=== PATIENT | female | born 1960 | race Caucasian/White ===

== ENCOUNTER 2019-04-16 08:46 | Observation (INO) ==
[2019-04-16 08:56] VITALS: BMI 28.5
--- NOTE | 2019-04-16 09:13 | DR.GENAD ---
HPI Time Seen Time Seen by Provider: 04/16/19 09:12 PCP Primary Care Physician: DR WHITTAKER HPI Comment HPI Comment: PATIENT IS 59YR OLD FEMALE IN THE ED AFTER FALLING THIS AM. INJURED NOSE AND LEFT KNEE. NO LOC. PAIN 8/10 LEFT KNEE AND SHARP AND RADIATES TO LEFT LEG. TD NOT UTD. BLEEDING CONTROL. SMALL WOUND UNDER LEFT GREAT TOE AND SIDE 5TH TOE WELL. PATIENT ON ELIQUIS. Complaint/Symptoms Chief Complaint Doctors Comments: FELL, INJURY LEFT KNEE, HIT NOSE, LACERATION TO NOSE. Chief Complaint:: PT GOT UP AND WALKED WITHOUT WALKER TO BATHROOM THIS MORNING AND FELL ONTO LEFT KNEE AND HIT HER NOSE. PT IS C/O CONSTANT PAIN TO LEFT KNEE AND IS NOTED TO HAVE SMALL CUT TO BRIDGE OF NOSE, DENIES LOC. Nurses notes reviewed Nurses Notes Review: Yes Source History Provided: Patient Mode of Arrival Mode of Arrival: Ambulatory Timing Onset of Chief Complaint: 04/16/19 Came on: Suddenly and On Awakening Duration Duration: Constant Duration: Hours Location Location: LEFT KNEE, NOSE. Severity Severity: Moderate Modifying Factors Worsens:: WALKING Improves:: RESTING LEFT KNEE. Associated Signs and Symptoms Associated Signs and Symptoms: DIFFICULTY BEARING WEIGHT LLE. Other History Other History: CHF, COPD. PMH PMH Past Medical History: Yes Past Medical History: Anxiety, Asthma, CHF, COPD and Depression Past Medical History Comment: BIPOLAR, INSOMNIA Past Surgical History: Yes Surgical History: Appendectomy, Cholecystectomy and Tonsillectomy Past Surgical History Comment: LEFT KNEE SURGERY Family History History of Family Medical Conditions: Yes Family Medical History: Diabetes Mellitus, [place], Coronary Artery Disease, Heart Fa ilure and Hypertension Family Medical History Comment: CVA Social History Does patient currently use any type of tobacco product: Yes Have you used tobacco products in the last 12 months: Yes Type of Tobacco Use: None Does any household member use tobacco: No Alcohol Use: Rarely Do you use any recreational Drugs:: No Lives With: Spouse Lives Where: Home infectious screening In the last 2 months have you had wt loss of >10#?: NO Have you had fever, night sweats or hemotysis?: No Have you traveled outside the country in the last 6 months?: No Isolation: Standard ROS Review of Systems Constitutional: No Symptoms Reported and See HPI; negative Chills, Fever, Weakness, Fatigue and Loss of Appetite Eyes: No Symptoms Reported and See HPI ENTM: See HPI and Nose Pain; negative Ear Pain, Nose Discharge, Epistaxis and Throat Pain Respiratoy: No Symptoms Reported and See HPI; negative Moist Cough, Short of Breath and Wheezing Cardiovascular: See HPI and Edema; negative Chest Pain and Palpitations Gastrointestinal/Abdominal: No Symptoms Reported and See HPI; negative Abdominal Pain, Diarrhea and Vomiting Genitourinary: No Symptoms Reported and See HPI; negative Dysuria, Frequency and Hematuria Neurological: See HPI and Headache; negative Weakness and Dizziness Musculoskeletal: See HPI, Muscle Pain, Left, Knee, Foot and Other (NOSE LACERATION.) Hematologic/Lymphatic: See HPI, Easy Bleeding and Easy Bruising; negative Swollen Glands Endocrine: No Symptoms Reported; negative Increased Thirst and Increased Urine Psychiatric: See HPI and Other (BIPOLAR DISORDER.) All Other Systems: Reviewed and Negative PE Vital Signs Vitals: Temperature 98 F Pulse Rate [Left Brachial] 61 Pulse Rate [Right Brachial] 71 Pulse Rate 59 Respiratory Rate 18 Blood Pressure [Left Arm] 109/59 Blood Pressure [Right Arm] 130/59 Blood Pressure 137/72 O2 Sat by Pulse Oximetry 98 General Limitations: No Limitations General Appearance: Alert and In No Apparent Distress Head Head Exam: Other (LACERATION NOSE) Eyes Eye exam: Normal Appearance and PERRL; negative Scleral Icterus and Conjunctival Injection ENT ENT Exam: Normal Exam, Normal Oropharynx and Normal External Ear Exam External Ear Exam: Normal External Inspection; negative Mastoid Tenderness, Pain with Movement and External Tenderness TM/Canal Exam: Bilateral: Normal Nose Exam: Laceration; negative Nasal Deviation and Septal Hematoma Mouth Exam: Normal Inspection; negative Lip Swelling and Tongue Swelling Throat Exam: Normal Inspection; negative Tonsillar Erythema, Tonsillomegaly and Tonsillar Exudate Neck Neck Exam: Normal Inspection and Trachea Midline; negative Tenderness and Lymphadenopathy Chest Chest Inspection: Normal Inspection and Symmetric Chest Wall Rise; negative Tenderness Respiratory Respiratory Exam: Normal Lung Sounds Bilat; negative Accessory Muscle Use, Chest Wall Tenderness and Respiratory Distress Respiratory Exam: Bilateral: Rhonchi and Lower: Rhonchi Cardiovascular Cardiovascular Exam: Regular Rate, Normal Rhythm and Normal Heart Sounds; negative Systolic Murmur and Diastolic Murmur Abdominal Exam Abdominal Exam: Normal Inspection, Normal Bowel Sounds and Soft; negative Tenderness Extremities Extremities Exam: Other (ABRASION UNDER GREAT TOE AND SIDE 5TH TOE.) Back Back Exam: Normal Inspection Neurologic Neurological Exam: Alert, Oriented X3 and CN II-XII Intact; negative Motor Sensory Deficit Psychiatric Psychiatric Exam: Normal Affect and Normal Mood Skin Skin Exam: Erythema and Other (LACERATION BRIDGE OF NOSE AND ABRASION TOES.) MDM Differential Diagnosis Differential Diagnosis: LEFT KNEE/CONTUSION, SPRAIN, FRACTURE, LACERATION NOSE, ABRASION TOES COURSE Treatment Treatment: SEE ORDERS. 10:48 TD 0.5MG IM IN ED TODAY. 09:30 MORPHIN 4MG AND ZOFRAN 4MG IM, PAIN SLIGHTLY IMPROVED. Consultation Consultation Comments: DISCUSS PATIENT WITH DR. COTTON. HE WILL ADMIT [facility]. WANT CT KNEE DONE BEFORE ADMIT. Education/Counseling Education/Counseling: Patient Educated On: Diagnosis ROR Labs Reviewed Laboratory Results Reviewed?: Yes Result Diagrams: 04/17/19 05:02 04/17/19 05:02 Laboratory: WBC 6.8 X10^3/uL (3.6-10.0) 04/17/19 05:02 RBC 3.84 X10^6/uL (3.5-5.4) 04/17/19 05:02 Hgb 11.6 g/dL (12.0-16.0) L 04/17/19 05:02 Hct 35.1 % (36.0-47.0) L 04/17/19 05:02 MCV 91.4 fL (80.0-100.0) 04/17/19 05:02 MCH 30.1 pg (27.0-34.0) 04/17/19 05:02 MCHC 32.9 g/dL (33.0-35.0) L 04/17/19 05:02 RDW 21.2 % (11.6-16.5) H 04/17/19 05:02 Plt Count 218 X10^3/uL (150.0-450.0) 04/17/19 05:02 Plt Count Comment Adequate (ADEQUATE) 04/17/19 05:02 MPV 7.9 fL (7.4-11.0) 04/17/19 05:02 Neut % (Auto) 50.3 % (42.0-75.0) 04/17/19 05:02 Lymph % (Auto) 35.8 % (21.0-51.0) 04/17/19 05:02 [place] % (Auto) 12.0 % (0.0-13.0) 04/17/19 05:02 Eos % (Auto) 1.4 % (0.9-2.9) 04/17/19 05:02 Baso % (Auto) 0.5 % (0.2-1.0) 04/17/19 05:02 Neut # (Auto) 3.4 x10^3/uL (2.2-4.8) 04/17/19 05:02 Lymph # (Auto) 2.4 X10^3/uL (1.3-2.9) 04/17/19 05:02 [place] # (Auto) 0.8 x10^3/uL (0.3-0.8) 04/17/19 05:02 Eos # (Auto) 0.1 x10^3/uL (0.0-0.2) 04/17/19 05:02 Baso # (Auto) 0.0 X10^3/uL (0.0-0.1) 04/17/19 05:02 Absolute Nucleated RBC 0.1 /100WBC 04/17/19 05:02 Plt Morphology Comment Normal (NORMAL) 04/17/19 05:02 RBC Morphology Abnormal (NORMAL) A 04/17/19 05:02 Anisocytosis Slight A 04/17/19 05:02 INR Target Range - 04/16/19 17:50 INR 1.20 (0.8-1.3) 04/16/19 17:50 Sodium 138 mmol/L (136-145) 04/17/19 05:02 Corrected Sodium TNP 04/17/19 05:02 Potassium 4.1 mmol/L (3.5-5.1) 04/17/19 05:02 Chloride 102 mmol/L (98-107) 04/17/19 05:02 Carbon Dioxide 28.5 mmol/L (21-32) 04/17/19 05:02 BUN 6 mg/dL (7-18) L 04/17/19 05:02 Creatinine 0.53 mg/dL (0.55-1.02) L 04/17/19 05:02 Est GFR (MDRD) Af Amer > 60 (>60) 04/17/19 05:02 Est GFR (MDRD) Non-Af > 60 (>60) 04/17/19 05:02 Glucose 84 mg/dL (65-99) 04/17/19 05:02 Calcium 7.8 mg/dL (8.5-10.1) L 04/17/19 05:02 Corrected Calcium 8.9 mg/dL (8.5-10.1) 04/17/19 05:02 Total Bilirubin 0.40 mg/dL (0.2-1.0) 04/17/19 05:02 AST 28 Units/L (15-37) 04/17/19 05:02 ALT 10 Units/L (12-78) L 04/17/19 05:02 Alkaline Phosphatase 138 Units/L (46-116) H 04/17/19 05:02 Total Protein 6.5 g/dL (6.4-8.2) 04/17/19 05:02 Albumin 2.6 g/dL (3.4-5.0) L 04/17/19 05:02 Globulin 3.9 g/dL (2.5-4.5) 04/17/19 05:02 Albumin/Globulin Ratio 0.7 Ratio (1.1-2.1) L 04/17/19 05:02 Specimen Type Clean catch urine 04/16/19 17:43 Urine Color Yellow (YELLOW) 04/16/19 17:43 Urine Appearance Clear (CLEAR) 04/16/19 17:43 Urine pH 7.0 (5.0 - 8.0) 04/16/19 17:43 Ur Specific [place] 1.010 (1.000-1.030) 04/16/19 17:43 Urine Protein Negative (NEGATIVE) 04/16/19 17:43 Urine Glucose (UA) Negative (NEGATIVE) 04/16/19 17:43 Urine Ketones Negative (NEGATIVE) 04/16/19 17:43 Urine Occult Blood 3+ (NEGATIVE) 04/16/19 17:43 Urine Nitrite Negative (NEGATIVE) 04/16/19 17:43 Urine Bilirubin Negative (NEGATIVE) 04/16/19 17:43 Urine Urobilinogen 2+ (NORMAL) 04/16/19 17:43 Ur Leukocyte Esterase Negative (NEGATIVE) 04/16/19 17:43 Urine RBC 5-10 /HPF (NONE SEEN) 04/16/19 17:43 Urine WBC None seen /HPF (NONE SEEN) 04/16/19 17:43 Ur Squamous Epith Cells Negative /HPF (NEGATIVE) 04/16/19 17:43 Urine Bacteria Negative /HPF (NEGATIVE) 04/16/19 17:43 Ur Culture Indicated? No/not indicated 04/16/19 17:43 Opioid Opioid Risk Tool Age ([place] box if 16-45): No History of Preadolescent Sexual Abuse: No Psychological Disease: Bipolar Total: 0 Total Score Risk Category: Low Risk Copyright: [employer] predicting aberrant behaviors Diagnosis Discharge Problem: Intractable pain Traumatic hematoma of left knee Qualifiers: Encounter type: initial encounter Qualified Code(s): S80.02XA - Contusion of left knee, initial encounter Abrasion of toe, left Qualifiers: Encounter type: initial encounter Qualified Code(s): S90.415A - Abrasion, left lesser toe(s), initial encounter Laceration of nose Qualifiers: Encounter type: initial encounter Qualified Code(s): S01.21XA - Laceration without foreign body of nose, initial encounter Fracture of finger, distal phalanx Qualifiers: Encounter type: initial encounter Finger: little finger Fracture type: closed Fracture alignment: nondisplaced Laterality: left Qualified Code(s): S62.667A - Nondisplaced fracture of distal phalanx of left little finger, initial encounter for closed fracture Maxillary sinus fracture Qualifiers: Encounter type: initial encounter Fracture type: closed Qualified Code(s): S02.401A - Maxillary fracture, unspecified side, initial encounter for closed fracture Instructions Instructions: Managing Pain Without Opioids Pain Medicine Instructions Atrial Fibrillation Preventing Atrial Fibrillation-Related Stroke Forms: Excuse From Work
[2019-04-16] MEDS ORDERED: ZOFRAN INJ 4 MG VIAL IVP ONE (09:30)
[2019-04-16] MEDS ORDERED: MORPHINE SULFATE INJ 4 MG IVP ONE (09:30)
[2019-04-16] MEDS ORDERED: ZOFRAN INJ 4 MG VIAL ONE (09:31)
[2019-04-16] MEDS ORDERED: MORPHINE SULFATE INJ 4 MG ONE (09:31)
--- NOTE | 2019-04-16 09:37 | RAD ---
History: Right hand pain after fall Study: Three views of the right hand Findings: There is osteopenia. There is flexion of the PIP joint of the 5th digit. There is narrowing of the metacarpal phalangeal joints. There is a fracture at the base of the proximal phalanx of the 5th digit overall nondisplaced. There are prominent osteophytes about the interphalangeal joint of the thumb. There are osteophytes about the metacarpal phalangeal joint of the 1st digit in the 1st metacarpal-carpal joint. Impression: Acute transverse fracture of the base of the proximal phalanx of the 5th digit Reported By:
--- NOTE | 2019-04-16 09:38 | RAD ---
History: Fall this morning and left knee pain Study: AP and lateral left knee Findings: There is marked soft tissue swelling about the left knee medially and ventrally. No joint effusion is demonstrated. No fracture is demonstrated. There is diffuse joint space narrowing with associated prominent osteophyte formation. There is osteopenia. Impression: 1. Prominent soft tissue swelling but no evidence for fracture 2. Osteopenia and moderate tricompartment erosive osteoarthritis Reported By:
--- NOTE | 2019-04-16 10:21 | CT ---
History: Fall this morning hitting nose. Study: CT head without contrast. Sagittal and coronal reformations were provided. Findings: The ventricles and sulci are prominent without mass effect. There is no intracranial hemorrhage or mass or edema or subdural collection of fluid. There is soft tissue swelling over the left frontal bone suggested. No fracture or depression is demonstrated of the frontal bone. The left maxillary sinus has a small air-fluid level of increased attenuation implying blood. There is a fracture of the left maxillary sinus anteriorly. The lateral wall is intact. The zygomatic arch is intact. No definite nasal fracture is demonstrated. The orbit is intact. There is focal low attenuation in the left anterior basal ganglia with enlargement of the left frontal horn. Impression: 1. 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 Blood in the left maxillary sinus with a focal fracture of the left anterior wall of the maxillary sinus. Reported By:
[2019-04-16] MEDS ORDERED: ADACEL or BOOSTRIX TDaP VACCINE IM ONE ×2 (10:48→10:49)
[2019-04-16] MEDS: NICOTINE PATCH TD SCH (12:08)
[2019-04-16] MEDS: TYLENOL 325 MG TAB PO PRN (12:08)
[2019-04-16] MEDS ORDERED: NICOTINE PATCH ONE (13:08)
--- NOTE | 2019-04-16 14:07 | CT ---
HISTORY: Injury, fall, left knee pain Study: CT left knee without contrast Comparison: Plain films same date Technique: Axial noncontrast images with coronal and sagittal reformats. Dose reduction procedures were used with mA/kv adjusted for body size. Findings: There is marked prepatellar soft tissue swelling present likely with an associated subcutaneous hematoma a trace joint effusion is present. The bones are osteopenic. The distal femur and patella appear intact as does the proximal tibia and proximal fibula. There is severe tricompartmental degenerative joint disease most prominently affecting the medial compartment but also affecting the lateral and patellofemoral compartments. Femoral and tibial osteophytes are present as are patellar osteophytes. IMPRESSION: Marked soft tissue swelling in the prepatellar region extending from the patella to the area of the tibial tubercle. Within this soft tissue swelling is likely a soft tissue hematoma. Trace joint effusion No definite fracture identified Severe tricompartmental degenerative joint disease Moderately severe osteopenia. Reported By:
[2019-04-16] MEDS ORDERED: MORPHINE SULFATE INJ 2 MG INJ IVP PRN (16:52)
[2019-04-16] MEDS ORDERED: ZOFRAN INJ 4 MG VIAL IVP PRN (16:53)
[2019-04-16] MEDS ORDERED: ZOFRAN TAB 4 MG PO PRN (17:25)
[2019-04-16] MEDS ORDERED: ZANAFLEX PO PRN (17:25)
[2019-04-16 18:02] LABS: BASOPHILS # (AUTO) 0.1 X10^3/uL (0.0-0.1); BASOPHILS % (AUTO) 0.9 % (0.2-1.0); EOSINOPHILS # (AUTO) 0.1 x10^3/uL (0.0-0.2); EOSINOPHILS % (AUTO) 1.1 % (0.9-2.9); HEMATOCRIT 35.8 % (36.0-47.0); HEMOGLOBIN 11.6 g/dL (12.0-16.0); LYMPHOCYTES # (AUTO) 2.8 X10^3/uL (1.3-2.9); LYMPHOCYTES % (AUTO) 33.2 % (21.0-51.0); MEAN CORPUSCULAR HEMOGLOBIN 29.8 pg (27.0-34.0); MEAN CORPUSCULAR HGB CONC 32.5 g/dL (33.0-35.0); MEAN CORPUSCULAR VOLUME 91.7 fL (80.0-100.0); MONOCYTES # (AUTO) 0.9 x10^3/uL (0.3-0.8); MONOCYTES % (AUTO) 10.5 % (0.0-13.0); NEUTROPHILS # (AUTO) 4.5 x10^3/uL (2.2-4.8); NEUTROPHILS % (AUTO) 54.3 % (42.0-75.0); PLATELET COUNT 258 X10^3/uL (150.0-450.0); RED CELL DISTRIBUTION WIDTH 21.5 % (11.6-16.5); WHITE BLOOD COUNT 8.3 X10^3/uL (3.6-10.0)
[2019-04-16 18:05] LABS: BILIRUBIN,URINE NEGATIVE (NEGATIVE); BLOOD/HEMOGLOBIN,URINE 3+ (NEGATIVE); GLUCOSE, URINE NEGATIVE (NEGATIVE); KETONES,URINE NEGATIVE (NEGATIVE); LEUKOCYTE ESTERASE ,URINE NEGATIVE (NEGATIVE); NITRITES,URINE NEGATIVE (NEGATIVE); PROTEIN,URINE NEGATIVE (NEGATIVE); UROBILINOGEN,URINE 2+ (NORMAL)
[2019-04-16 18:06] LABS: APPEARANCE,URINE CLEAR (CLEAR); COLOR,URINE YELLOW (YELLOW)
[2019-04-16 18:12] LABS: ALANINE AMINOTRANSFERASE 18 Units/L (12-78); ALBUMIN 2.9 g/dL (3.4-5.0); ALKALINE PHOSPHATASE 146 Units/L (46-116); ASPARTATE AMINO TRANSFERASE 30 Units/L (15-37); BLOOD UREA NITROGEN 7 mg/dL (7-18); CALCIUM 8.2 mg/dL (8.5-10.1); CARBON DIOXIDE 30.7 mmol/L (21-32); CHLORIDE 101 mmol/L (98-107); COR CA(FOR HYPOALB) 9.1 mg/dL (8.5-10.1); CREATININE 0.62 mg/dL (0.55-1.02); SODIUM 138 mmol/L (136-145); TOTAL PROTEIN 7.1 g/dL (6.4-8.2); eGFR NON BLACK RACES > 60 (>60)
[2019-04-16 18:14] LABS: BACTERIA,URINE NEGATIVE /HPF (NEGATIVE); SQUAMOUS EPITHELIAL CELL,UR NEGATIVE /HPF (NEGATIVE)
[2019-04-16 18:24] LABS: ANISOCYTOSIS 1+; PLATELET MORPHOLOGY COMMENT NORMAL (NORMAL)
[2019-04-16] MEDS: COREG TAB 25 MG PO SCH ×2 (20:16→20:36)
[2019-04-16] MEDS: CYMBALTA PO SCH (20:17)
[2019-04-16] MEDS: BUSPAR PO SCH (20:17)
[2019-04-16] MEDS: ZANTAC PO SCH (20:17)
[2019-04-16] MEDS: ELIQUIS PO SCH (20:17)
[2019-04-16] MEDS ORDERED: DEPAKOTE D.R. TAB ONE (20:24)
[2019-04-16] MEDS: NORCO 7.5/325 MG TAB PO PRN (20:26)
[2019-04-16] MEDS: NS 1000 ML 1,000 ML IV SCH ×2 (20:33)
[2019-04-16] MEDS ORDERED: PULMICORT NEB TX 0.5 MG NEB SCH (21:00)
[2019-04-16] MEDS: PULMICORT NEB TX 0.5 MG NEB SCH (21:15)
[2019-04-16] MEDS: XOPENEX 1.25 MG/3 ML NEBULE NEB SCH (21:15)
[2019-04-16] MEDS ORDERED: DUONEB 0.5 MG/3 MG NEB SCH (22:00)
[2019-04-16] MEDS: DEPAKOTE D.R. TAB PO SCH (22:00)
[2019-04-16] MEDS: LYRICA CAP 50 MG PO SCH (22:00)
[2019-04-17] MEDS: TYLENOL 325 MG TAB PO PRN (01:19)
[2019-04-17] MEDS ORDERED: DEPAKOTE D.R. TAB ONE ×2 (05:18→14:47)
[2019-04-17] MEDS: XOPENEX 1.25 MG/3 ML NEBULE NEB SCH ×2 (05:20→13:54)
[2019-04-17 05:31] LABS: BASOPHILS % (AUTO) 0.5 % (0.2-1.0); EOSINOPHILS # (AUTO) 0.1 x10^3/uL (0.0-0.2); EOSINOPHILS % (AUTO) 1.4 % (0.9-2.9); HEMATOCRIT 35.1 % (36.0-47.0); HEMOGLOBIN 11.6 g/dL (12.0-16.0); LYMPHOCYTES # (AUTO) 2.4 X10^3/uL (1.3-2.9); LYMPHOCYTES % (AUTO) 35.8 % (21.0-51.0); MEAN CORPUSCULAR HEMOGLOBIN 30.1 pg (27.0-34.0); MEAN CORPUSCULAR HGB CONC 32.9 g/dL (33.0-35.0); MEAN CORPUSCULAR VOLUME 91.4 fL (80.0-100.0); MEAN PLATELET VOLUME 7.9 fL (7.4-11.0); MONOCYTES # (AUTO) 0.8 x10^3/uL (0.3-0.8); NEUTROPHILS # (AUTO) 3.4 x10^3/uL (2.2-4.8); NEUTROPHILS % (AUTO) 50.3 % (42.0-75.0); PLATELET COUNT 218 X10^3/uL (150.0-450.0); RED BLOOD COUNT 3.84 X10^6/uL (3.5-5.4); RED CELL DISTRIBUTION WIDTH 21.2 % (11.6-16.5); WHITE BLOOD COUNT 6.8 X10^3/uL (3.6-10.0)
[2019-04-17] MEDS: DEPAKOTE D.R. TAB PO SCH ×2 (06:00→14:48)
[2019-04-17 06:01] LABS: ALANINE AMINOTRANSFERASE 10 Units/L (12-78); ALBUMIN 2.6 g/dL (3.4-5.0); ALKALINE PHOSPHATASE 138 Units/L (46-116); ASPARTATE AMINO TRANSFERASE 28 Units/L (15-37); BLOOD UREA NITROGEN 6 mg/dL (7-18); CALCIUM 7.8 mg/dL (8.5-10.1); CARBON DIOXIDE 28.5 mmol/L (21-32); CHLORIDE 102 mmol/L (98-107); COR CA(FOR HYPOALB) 8.9 mg/dL (8.5-10.1); CREATININE 0.53 mg/dL (0.55-1.02); SODIUM 138 mmol/L (136-145); TOTAL PROTEIN 6.5 g/dL (6.4-8.2); eGFR NON BLACK RACES > 60 (>60)
[2019-04-17] MEDS: LYRICA CAP 50 MG PO SCH ×2 (06:03→14:48)
[2019-04-17 06:05] LABS: ANISOCYTOSIS SLIGHT; PLATELET MORPHOLOGY COMMENT NORMAL (NORMAL)
[2019-04-17] MEDS: NS 1000 ML 1,000 ML IV SCH (06:22)
[2019-04-17] MEDS ORDERED: MICRO K EXTEN CAP 10 MEQ PO SCH (09:00)
[2019-04-17] MEDS ORDERED: LASIX PO SCH (09:00)
[2019-04-17] MEDS ORDERED: ZESTRIL TAB 10 MG PO SCH (09:00)
[2019-04-17] MEDS: PULMICORT NEB TX 0.5 MG NEB SCH (09:14)
[2019-04-17] MEDS: BUSPAR PO SCH (09:46)
[2019-04-17] MEDS: ELIQUIS PO SCH (09:46)
[2019-04-17] MEDS: CYMBALTA PO SCH (09:46)
[2019-04-17] MEDS: ZANTAC PO SCH (09:47)
[2019-04-17] MEDS: NORCO 7.5/325 MG TAB PO PRN (09:47)
[2019-04-17] MEDS: COREG TAB 25 MG PO SCH (09:47)
[2019-04-17] MEDS: NICOTINE PATCH TD SCH (09:48)
--- NOTE | 2019-04-17 11:53 | DR.CARTERS ---
Short Stay Summary - Short Stay Summary for: Short Stay Summary for Date of:: 04/17/19 - Admission Date Date of Admission: 04/16/19 - Discharge Date Discharge Date: 04/17/19 - Admission Diagnoses (1) Afib Status: Acute (2) Long-term (current) use of anticoagulants, INR goal 2.0-3.0 Status: Acute (3) COPD (chronic obstructive pulmonary disease) Status: Acute (4) Erosive osteoarthritis Status: Acute (5) Intractable pain Status: Acute (6) Traumatic hematoma of left knee Status: Acute - Hospital Course Hospital Course: 59 WF ER ADMISSION AFTER PRESENTING WITH CO SHE USES WHEELCHAIR DUE TO SEVERE OA LEFT HIP AND KNEES AND SHE PT GOT UP AND WALKED WITHOUT WALKER TO BATHROOM THIS MORNING AND FELL ONTO LEFT KNEE AND HIT HER NOSE. PT IS C/O CONSTANT PAIN TO LEFT KNEE AND IS NOTED TO HAVE SMALL CUT TO BRIDGE OF NOSE, DENIES LOC. PT IS ON ELIQUIS FOR AFIB ANTICOGULANT THERAPY. 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 CT LEFT KNEE RESULTING IN Marked soft tissue sw elling in the prepatellar region extending from the patella to the area of the tibial tubercle. Within this soft tissue swelling is likely a soft tissue hematoma,Trace joint effusion, No definite fracture identified,Severe tricompartmental degenerative joint disease. PMH PMH Past Medical History: Yes Past Medical History: Anxiety, Asthma, CHF, COPD and Depression Past Medical History Comment: BIPOLAR, INSOMNIA Past Surgical History: Yes Surgical History: Appendectomy, Cholecystectomy and Tonsillectomy Past Surgical History Comment: LEFT KNEE SURGERY Family History History of Family Medical Conditions: Yes Family Medical History: Diabetes Mellitus, [place], Coronary Artery Disease, Heart Failure and Hypertension Family Medical History Comment: CVA Social History Does patient currently use any type of tobacco product: Yes Have you used tobacco products in the last 12 months: Yes Type of Tobacco Use: None Does any household member use tobacco: No Alcohol Use: Rarely Do you use any recreational Drugs:: No Lives With: Spouse Lives Where: Home infectious screening In the last 2 months have you had wt loss of >10#?: NO Have you had fever, night sweats or hemotysis?: No Have you traveled outside the country in the last 6 months?: No Isolation: Standard PE Vital Signs Vitals: Temperature 97.8 F Pulse Rate 64 Respiratory Rate 18 Blood Pressure 137/72 O2 Sat by Pulse Oximetry 93 HENT: WNL LUNGS: MILD BILATERAL EXP WHEEZES, NO RALES NO RHONCHI HEART: RRR, MURMUR PRESENT ABD: SNTND, BS +X4 NEURO: A/o x3, sensation intact MS: RIGHT HIP TENDER, NASAL BRIDGE EDEMA WITH MILD BRUISING, LEFT KNEE TENDER WITH MODERATE DIFFUSE SWELLING, BRUISING PT HAD HASEEB BANDAGE PLACED IN ER. THIS AM PT'S HGB AND PLATELETS WERE STABLE SHE CO PAIN IS CONTROLLED AT THIS TIME, ASKING TO GO HOME. PT IS CARED FOR BY HER DAUGHTER AND SON IN [place]. PT WAS INSTRUCTED TO CONTINUE HOME MEDICATION, ICE AND ELEVATE LLE, USE WHEELCHAIR AND FOLLOW UP WITH HER PCP AND ORTHO IN 7-10 DAYS. RETURN TO ER IF CONDITION CHANGES OR WORSENED. - Discharge Medications Discharge Medications: Home Medication List apixaban [Eliquis] 5 mg PO BID 04/16/19 [History] buspirone 30 mg PO BID 04/16/19 [History] carvedilol 25 mg PO BID 04/16/19 [History] divalproex 500 mg PO TID 04/16/19 [History] duloxetine 30 mg PO BID 04/16/19 [History] fluticasone propion-salmeterol [Advair Diskus] 1 inh INHALATION BID 04/16/19 [History] furosemide 40 mg PO DAILY 04/16/19 [History] hydrocodone-acetaminophen 1 tab PO BID PRN 04/16/19 [History] lisinopril 10 mg PO DAILY 04/16/19 [History] ondansetron 4 mg PO Q4H PRN 04/16/19 [History] potassium chloride 10 meq PO DAILY 04/16/19 [History] pregabalin [Lyrica] 50 mg PO TID 04/16/19 [History] ranitidine HCl 150 mg PO BID 04/16/19 [History] tizanidine 4 mg PO TID PRN 04/16/19 [History] Prescriptions: - Discharge Plan Disposition: 01 HOME, SELF-CARE Condition: Stable - Follow up/Referrals Follow up/Referrals: JALLI WHITTAKER [Primary Care Provider] - 3 days - Instructions Forms: Excuse From Work
[2019-04-17 12:33] VITALS: BP 109/59
== END 2019-04-17 14:55 | disposition home or self-care (01) ==
LOC: MED/SURG 08:46 → ER 08:46 → MED/SURG 16:54
PROVIDERS: ADMIT Internal Medicine; ATTEND Internal Medicine
DX: J44.9 Chronic obstructive pulmonary disease, unspecified; W18.39XA Other fall on same level, initial encounter; M85.862 Other specified disorders of bone density and structure, left lower leg; M25.562 Pain in left knee; M25.462 Effusion, left knee; S62.646A Nondisplaced fracture of proximal phalanx of right little finger, initial encounter for closed fracture; S02.40DA Maxillary fracture, left side, initial encounter for closed fracture; Z79.01 Long term (current) use of anticoagulants; S01.21XA Laceration without foreign body of nose, initial encounter; I48.91 Unspecified atrial fibrillation; F41.8 Other specified anxiety disorders; S80.02XA Contusion of left knee, initial encounter; Z23 Encounter for immunization; Y92.091 Bathroom in other non-institutional residence as the place of occurrence of the external cause
CPT/HCPCS: 36415; 70450; 73130; 73564; 73700; 80053; 81001; 85025; 85610; 90471; 90715; 93005; 94640; 94760; 96365; 96374; 96375; 99218; 99284; G0378; J2270; J2405; J3490; J7030; J7626

== ENCOUNTER 2019-08-13 16:58 | Observation (INO) ==
[2019-08-13] MEDS ORDERED: CATAPRES TAB 0.1 MG PO ONE (17:19)
[2019-08-13] MEDS ORDERED: CATAPRES TAB 0.1 MG ONE (17:20)
[2019-08-13] MEDS ORDERED: NITROSTAT SL PRN (17:35)
[2019-08-13] MEDS ORDERED: LASIX IVP ONE ×2 (17:36→19:25)
[2019-08-13 17:38] VITALS: BMI 42.0
--- NOTE | 2019-08-13 17:38 | ED.ABDFE ---
HPI - Complaint Chief Complaint Doctors Comments: Patient is complaining of xiphoid chest pain for a week with sharp left frontal headache and nausea. States she is a patient of Dr. Ennis in [facility]. She smokes one pack cigarettes daily but denies alcohol or drug usage. States this is not the worst headache of her life and she has been taking tylenol without improvement. She has been having LUQ pain that is sharp intermittent pain. States she had a small bowel movement today. Her chest pain is constant like someone is hitting her in her chest. States she takes Eliquis 5mg po bid and she has not had an aspirin or nitroglycerin. - Nurses notes reviewed Nurses Notes Review: Yes - Source History Provided: Patient, EMS - Mode of arrival Mode of Arrival: EMS - Timing Came on: Gradually - Duration Duration: Intermittent How lon Duration: Weeks - Location Location: LUQ, Epigastric - Severity Severity: Moderate - Quality Quality: Sharp - Context Onset: Gradually History of: None - Modifying Worsening Factors: Nothing Improving Factors: Nothing - Associated signs and symptoms Associated Signs and Symptoms: Nausea - Time seen Time Seen by Provider: 08/13/19 17:23 PMH - PMH Past Medical History: Depression, Anxiety, COPD, Asthma, CHF Past Surgical History: Yes Surgical History: Appendectomy, Cholecystectomy, Tonsillectomy - Family History Family Medical History: Diabetes Mellitus, [place], Coronary Artery Disease, Heart Failure, Hypertension - Social History Do you use any recreational Drugs:: No - infectious screening Isolation: Standard ROS - Review of Systems Constitutional: No Symptoms Reported Eyes: No Symptoms Reported ENTM: No Symptoms Reported Respiratoy: No Symptoms Reported, Non-Productive Cough Cardiovascular: No Symptoms Reported, Chest Pain, Edema, Palpitations. negative: See HPI, Syncope, Cyanosis, Skin Mottling, Other Gastrointestinal/Abdominal: No Symptoms Reported, Abdominal Pain, Nausea. negative: See HPI, Constipation, Diarrhea, Vomiting, Food Intolerance, Other Genitourinary: No Symptoms Reported, Dysuria, Frequency. negative: See HPI, Discharge, Hematuria, Pain, Bleeding, Other Neurological: No Symptoms Reported Musculoskeletal: No Symptoms Reported Integumentary: No Symptoms Reported Hematologic/Lymphatic: No Symptoms Reported. negative: See HPI, Anemia, Blood Clots, Easy Bleeding, Easy Bruising, Swollen Glands, Lymphadenopathy, Other Endocrine: No Symptoms Reported Psychiatric: No Symptoms Reported. negative: See HPI, Anxiety, Depression, Hallucinations, Excessive crying, Suicidal, Other PE - General Limitations: No Limitations General Appearance: Alert, In No Apparent Distress - Head Head Exam: Normal Inspection, Atraumatic, Normocephalic - Eyes Eye exam: Normal Appearance, PERRL. negative: EOMI, Scleral Icterus, Conjunctival Injection, Nystagmus, Miosis, Mydrasis, Periorbital Swelling, Periorbital Tenderness, Other - ENT ENT Exam: Normal Exam, Normal Oropharynx, Normal External Ear Exam, Mucous Membranes Moist, TM's Normal Bilaterally - Neck Neck Exam: Normal Inspection, Full ROM, Trachea Midline. negative: Tenderness, Meningismus, Lymphadenopathy, Thyromegaly, Other - Chest Chest Inspection: Normal Inspection, Symmetric Chest Wall Rise. negative: Tenderness, Rash, Abscess, Other - Respiratory Respiratory Exam: Normal Lung Sounds Bilat, Prolonged Expiratory Phase (intermittent rhonchi) - Cardiovascular Cardiovascular Exam: Regular Rate, Normal Rhythm, Normal Heart Sounds, Systolic Murmur - Abdominal Exam Abdominal Exam: Normal Inspection, Normal Bowel Sounds, Soft, Tenderness (LUQ tenderness) Abdominal Tenderness: LUQ, Epigastrium, Suprapubic, Moderate - Rectal Rectal Exam: Deferred - Back Back Exam: Normal Inspection, Full ROM. negative: Tenderness, (R) CVA Tenderness, (L) CVA Tenderness, Muscle Spasm, Paraspinal Tenderness, Vertebral Tenderness, Rashes, (R) Sciatic Notch Tenderness, (L) Sciatic Notch Tendern, (R) Straight Leg Raise, (L) Straight Leg Raise, Other - Extremeties Extremities Exam: Normal Inspection, Full ROM, Normal Capillary Refill. negative: Tenderness, Edema, Joint Swelling, Calf Tenderness, Other - External Exam: Female: Deferred : Speculum Exam (Female): Deferred : Bimanual Exam (female): Deferred - Neurologic Neurological Exam: Alert, Oriented X3, CN II-XII Intact, Normal Gait, Reflexes Normal - Psychiatric Psychiatric Exam: Normal Affect, Normal Mood. negative: Depressed, Agitated, Anxious, Flat Affect, Manic, Homicidal Ideation, Suicidal Ideation, Other - Skin Skin Exam: Warm, Dry, Intact, Normal Color. negative: Rash, Cyanosis, Diaphoresis, Erythema, Pallor, Mottled, Other - Vital Signs Vitals: Temperature 98.6 F Pulse Rate [Left Brachial] 71 Pulse Rate 70 Respiratory Rate 27 Blood Pressure [Left Arm] 158/93 Blood Pressure 110/62 O2 Sat by Pulse Oximetry 98 ROR - Labs Reviewed Laboratory Results Reviewed?: Yes (All labs and x-ray results reviewed and discussed with patient and family) Result Diagrams: 08/13/19 18:05 08/13/19 18:05 - XRAY XRAY Interpreted by: Radiologist (CT abdomen and pelvis: Post achlecystectomy with no obvious acute abnormal;ity. 5 cm cystic mass lower pole right kidney.), Both (CXR: Mild cardiomegaly and mild central pulmonary congestion. Bibasilar opacites right and could representedema or pneumonia.) XRAY Findings: CT head: [place] atropohy and mild chronic microischemic changes. No acute abn - EKG Rate: 79 [place]: Normal Rhythm: Aflutter Hypertrophy: None ST: Nonsp - Labs Reviewed Laboratory: WBC 9.4 X10^3/uL (3.6-10.0) 08/13/19 18:05 RBC 4.21 X10^6/uL (3.5-5.4) 08/13/19 18:05 Hgb 13.1 g/dL (12.0-16.0) 08/13/19 18:05 Hct 38.8 % (36.0-47.0) 08/13/19 18:05 MCV 92.3 fL (80.0-100.0) 08/13/19 18:05 MCH 31.0 pg (27.0-34.0) 08/13/19 18:05 MCHC 33.6 g/dL (33.0-35.0) 08/13/19 18:05 RDW 17.2 % (11.6-16.5) H 08/13/19 18:05 Plt Count 325 X10^3/uL (150.0-450.0) 08/13/19 18:05 MPV 7.6 fL (7.4-11.0) 08/13/19 18:05 Neut % (Auto) 58.7 % (42.0-75.0) 08/13/19 18:05 Lymph % (Auto) 30.5 % (21.0-51.0) 08/13/19 18:05 [place] % (Auto) 9.7 % (0.0-13.0) 08/13/19 18:05 Eos % (Auto) 0.2 % (0.9-2.9) L 08/13/19 18:05 Baso % (Auto) 0.9 % (0.2-1.0) 08/13/19 18:05 Neut # (Auto) 5.5 x10^3/uL (2.2-4.8) H 08/13/19 18:05 Lymph # (Auto) 2.9 X10^3/uL (1.3-2.9) 08/13/19 18:05 [place] # (Auto) 0.9 x10^3/uL (0.3-0.8) H 08/13/19 18:05 Eos # (Auto) 0.0 x10^3/uL (0.0-0.2) 08/13/19 18:05 Baso # (Auto) 0.1 X10^3/uL (0.0-0.1) 08/13/19 18:05 Absolute Nucleated RBC 0.0 /100WBC 08/13/19 18:05 PT 14.4 SECONDS (11.8-14.3) 08/13/19 18:05 INR Target Range - 08/13/19 18:05 INR 1.16 (0.8-1.3) 08/13/19 18:05 APTT 35.3 SECONDS (22.9-36.5) 08/13/19 18:05 PTT Comment - 08/13/19 18:05 Sodium 136 mmol/L (136-145) 08/13/19 18:05 Corrected Sodium TNP 08/13/19 18:05 Potassium 3.3 mmol/L (3.5-5.1) L 08/13/19 18:05 Chloride 99 mmol/L (98-107) 08/13/19 18:05 Carbon Dioxide 31.0 mmol/L (21-32) 08/13/19 18:05 BUN 10 mg/dL (7-18) 08/13/19 18:05 Creatinine 0.47 mg/dL (0.55-1.02) L 08/13/19 18:05 Est GFR (MDRD) Af Amer > 60 (>60) 08/13/19 18:05 Est GFR (MDRD) Non-Af > 60 (>60) 08/13/19 18:05 Glucose 84 mg/dL (65-99) 08/13/19 18:05 Calcium 8.6 mg/dL (8.5-10.1) 08/13/19 18:05 Corrected Calcium 9.6 mg/dL (8.5-10.1) 08/13/19 18:05 Magnesium 1.4 mg/dL (1.7-2.9) L 08/13/19 18:05 Total Bilirubin 0.30 mg/dL (0.2-1.0) 08/13/19 18:05 AST 26 Units/L (15-37) 08/13/19 18:05 ALT 19 Units/L (12-78) 08/13/19 18:05 Alkaline Phosphatase 144 Units/L (46-116) H 08/13/19 18:05 Creatine Kinase 51 Units/L (26-192) 08/13/19 18:05 CK-MB (CK-2) 3.0 ng/mL (0-4.0) 08/13/19 18:05 CK/CKMB % Calc 5.9 % (<4) 08/13/19 18:05 Troponin I 0.03 ng/mL (0-1.5) 08/13/19 18:05 Total Protein 7.2 g/dL (6.4-8.2) 08/13/19 18:05 Albumin 2.8 g/dL (3.4-5.0) L 08/13/19 18:05 Globulin 4.4 g/dL (2.5-4.5) 08/13/19 18:05 Albumin/Globulin Ratio 0.6 Ratio (1.1-2.1) L 08/13/19 18:05 Amylase 19 Units/L (25-115) L 08/13/19 18:05 Lipase 112 Units/L (73-393) 08/13/19 18:05 Opioid - Opioid Risk Tool Age ([place] box if 16-45): No History of Preadolescent Sexual Abuse: No Total: 0 Total Score Risk Category: Low Risk - Diagnosis Discharge Problem: Chest pain, rule out acute myocardial infarction, Pulmonary infiltrate, Renal mass, right, Accelerated hypertension, Hypokalemia COPD (chronic obstructive pulmonary disease) Qualifiers: COPD type: COPD with acute exacerbation Qualified Code(s): J44.1 - Chronic obstructive pulmonary disease with (acute) exacerbation - Discharge Plan Disposition: ADMITTED INPATIENT Condition: Stable - Follow ups/Referrals Follow ups/Referrals: NFD,None [Primary Care Provider] - 3 days - Instructions
--- NOTE | 2019-08-13 18:02 | CT ---
History: Mental status changeExam: CT head withoutComparison: 04/16/2019Technique: Teen transaxial images were obtained through the brain without contrast.Findings:The ventricles are mildly enlarged in unchanged. There is diffuse mild prominence of the cortical sulci which is unchanged. There is mild periventricular low density bilaterally which is unchanged. No intracranial hemorrhage or edema is seen. There is no extra-axial fluid collection or mass . The bones are intact. The midline structures are unremarkable.IMPRESSION: Mild atrophy and mild chronic microischemic changes scattered in the deep white matter which is unchanged with no acute abnormality seen.Reported By:
[2019-08-13] MEDS ORDERED: DUONEB 0.5 MG/3 MG NEB ONE (18:10)
[2019-08-13] MEDS ORDERED: DUONEB 0.5 MG/3 MG ONE (18:11)
--- NOTE | 2019-08-13 18:19 | CT ---
History: PainExam: CT abdomen and pelvis without contrastComparison: NoneTechnique: Axial spiral images were obtained from lung bases through the pubic symphysis without contrast. Automated dose control was utilized.Findings:There are mild subsegmental linear and ground-glass opacities scattered along both lung bases anteriorly and posteriorly. No effusion is seen. The liver and spleen are normal size and density. No focal lesion is seen. The gallbladder has been removed with clips in the gallbladder fossa. The bile ducts and pancreas are normal. The adrenals are normal . The kidneys are normal size with moderate perirenal stranding around both kidneys . No hydronephrosis or renal stones are seen . There is a 5 cm cystic mass lower pole right kidney. The ureters are normal caliber distally. The bladder is unremarkable. The uterus is atrophic with no adnexal mass or free fluid . The mesentery is unremarkable. The appendix is not well visualized with no pericecal inflammation. There is severe joint space narrowing in both hips with large osteophytes and subchondral lucency and sclerosis throughout . There are moderate degenerative changes seen throughout the spine with mild subluxation of L4 on L5 which appears degenerative in etiology. 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
[2019-08-13 18:27] LABS: BASOPHILS # (AUTO) 0.1 X10^3/uL (0.0-0.1); BASOPHILS % (AUTO) 0.9 % (0.2-1.0); EOSINOPHILS % (AUTO) 0.2 % (0.9-2.9); HEMATOCRIT 38.8 % (36.0-47.0); HEMOGLOBIN 13.1 g/dL (12.0-16.0); LYMPHOCYTES # (AUTO) 2.9 X10^3/uL (1.3-2.9); LYMPHOCYTES % (AUTO) 30.5 % (21.0-51.0); MEAN CORPUSCULAR HGB CONC 33.6 g/dL (33.0-35.0); MEAN CORPUSCULAR VOLUME 92.3 fL (80.0-100.0); MEAN PLATELET VOLUME 7.6 fL (7.4-11.0); MONOCYTES # (AUTO) 0.9 x10^3/uL (0.3-0.8); MONOCYTES % (AUTO) 9.7 % (0.0-13.0); NEUTROPHILS # (AUTO) 5.5 x10^3/uL (2.2-4.8); NEUTROPHILS % (AUTO) 58.7 % (42.0-75.0); PLATELET COUNT 325 X10^3/uL (150.0-450.0); RED BLOOD COUNT 4.21 X10^6/uL (3.5-5.4); RED CELL DISTRIBUTION WIDTH 17.2 % (11.6-16.5); WHITE BLOOD COUNT 9.4 X10^3/uL (3.6-10.0)
--- NOTE | 2019-08-13 18:31 | RAD ---
History: Chest painExam: Chest x-rayComparison: NoneTechnique: Portable AP chest Findings: The heart is mildly enlarged. The pulmonary vessels are engorged and ill-defined centrally . There are some hazy perihilar opacities extending into the lung bases which is more prominent on the right. No effusion is seen.IMPRESSION: Mild cardiomegaly and mild central pulmonary congestion.Hazy perihilar and bibasilar opacities which is more prominent on the right and could represent edema or associated pneumonia, recommend short-term follow-up.Reported By:
[2019-08-13 18:48] LABS: BLOOD UREA NITROGEN 10 mg/dL (7-18); CALCIUM 8.6 mg/dL (8.5-10.1); CHLORIDE 99 mmol/L (98-107); CREATININE 0.47 mg/dL (0.55-1.02); SODIUM 136 mmol/L (136-145); TROPONIN I 0.03 ng/mL (0-1.5); eGFR NON BLACK RACES > 60 (>60)
[2019-08-13 18:49] LABS: ALANINE AMINOTRANSFERASE 19 Units/L (12-78); ALBUMIN 2.8 g/dL (3.4-5.0); ALKALINE PHOSPHATASE 144 Units/L (46-116); AMYLASE 19 Units/L (25-115); ASPARTATE AMINO TRANSFERASE 26 Units/L (15-37); CKMB % 5.9 % (<4); COR CA(FOR HYPOALB) 9.6 mg/dL (8.5-10.1); CREATINE KINASE 51 Units/L (26-192); LIPASE 112 Units/L (73-393); MAGNESIUM 1.4 mg/dL (1.7-2.9); TOTAL PROTEIN 7.2 g/dL (6.4-8.2)
[2019-08-13] MEDS ORDERED: ROCEPHIN VIAL 1 GRAM 1 G in NS 100 ML IV + SPIKE MINIBAG* 100 ML IV ONE (19:22)
[2019-08-13] MEDS ORDERED: K-LYTE EFFERVESCENT PO STA (19:24)
[2019-08-13] MEDS ORDERED: NS 100 ML IV + SPIKE MINIBAG* 100 ML IV ONE (19:25)
[2019-08-13] MEDS ORDERED: ROCEPHIN VIAL 1 GRAM ONE (19:26)
[2019-08-13] MEDS ORDERED: NS 1000 ML 1,000 ML ONE (19:31)
[2019-08-13] MEDS ORDERED: K-LYTE EFFERVESCENT ONE (19:32)
[2019-08-13] MEDS ORDERED: NS 1000 ML 1,000 ML IV SCH (20:00)
[2019-08-13] MEDS ORDERED: SOLU-Medrol 125 MG VIAL IVP ONE (21:29)
[2019-08-13] MEDS ORDERED: SOLU-Medrol 125 MG VIAL ONE (21:33)
[2019-08-13 22:36] LABS: CKMB % 5.3 % (<4); CREATINE KINASE MB 2.6 ng/mL (0-4.0); TROPONIN I 0.02 ng/mL (0-1.5)
[2019-08-13] MEDS ORDERED: POTASSIUM CHL 60 MEQ/NS 0.45% 500 ML IV PRN (22:46)
[2019-08-13] MEDS ORDERED: POTASSIUM CHLORIDE LIQ 20 MEQ UDC PO PRN (22:46)
[2019-08-13] MEDS ORDERED: POTASSIUM CHL 40 MEQ/NS 0.45% 500 ML IV PRN (22:46)
[2019-08-13] MEDS ORDERED: KLOR-CON PO PRN (22:46)
[2019-08-13] MEDS ORDERED: K-DUR TAB 20 MEQ PO PRN (22:46)
[2019-08-13] MEDS ORDERED: MICRO K EXTEN CAP 10 MEQ PO PRN (22:46)
[2019-08-13] MEDS ORDERED: K-RIDER 10 MEQ/NS 100 ML 10 MEQ/100 ML BAG IV PRN (22:46)
[2019-08-13] MEDS ORDERED: DEPAKOTE D.R. TAB PO ONE (23:14)
[2019-08-13] MEDS: DEPAKOTE D.R. TAB PO SCH (23:17)
[2019-08-13] MEDS ORDERED: MAGNESIUM SULFATE 1 GRAM/100 mL PREMIX 4 G/400 ML BAG IV ONE (23:47)
[2019-08-13] MEDS: MAGNESIUM SULFATE 1 GRAM/100 mL PREMIX 1 GM/100 ML BAG IV PRN (23:52)
[2019-08-14] MEDS: MAGNESIUM SULFATE 1 GRAM/100 mL PREMIX 1 GM/100 ML BAG IV PRN ×3 (00:55→04:13)
[2019-08-14] MEDS: DUONEB 0.5 MG/3 MG NEB SCH ×3 (01:40→09:21)
[2019-08-14 03:32] LABS: BASOPHILS # (AUTO) 0.1 X10^3/uL (0.0-0.1); BASOPHILS % (AUTO) 0.9 % (0.2-1.0); HEMATOCRIT 37.6 % (36.0-47.0); HEMOGLOBIN 12.7 g/dL (12.0-16.0); LYMPHOCYTES # (AUTO) 0.6 X10^3/uL (1.3-2.9); LYMPHOCYTES % (AUTO) 5.7 % (21.0-51.0); MEAN CORPUSCULAR HEMOGLOBIN 30.9 pg (27.0-34.0); MEAN CORPUSCULAR HGB CONC 33.7 g/dL (33.0-35.0); MEAN CORPUSCULAR VOLUME 91.5 fL (80.0-100.0); MONOCYTES # (AUTO) 0.1 x10^3/uL (0.3-0.8); MONOCYTES % (AUTO) 0.8 % (0.0-13.0); NEUTROPHILS # (AUTO) 9.1 x10^3/uL (2.2-4.8); NEUTROPHILS % (AUTO) 92.6 % (42.0-75.0); PLATELET COUNT 309 X10^3/uL (150.0-450.0); RED BLOOD COUNT 4.11 X10^6/uL (3.5-5.4); RED CELL DISTRIBUTION WIDTH 16.8 % (11.6-16.5); WHITE BLOOD COUNT 9.8 X10^3/uL (3.6-10.0)
[2019-08-14 03:50] LABS: ALANINE AMINOTRANSFERASE 17 Units/L (12-78); ALBUMIN 2.5 g/dL (3.4-5.0); ALKALINE PHOSPHATASE 129 Units/L (46-116); ASPARTATE AMINO TRANSFERASE 25 Units/L (15-37); BLOOD UREA NITROGEN 8 mg/dL (7-18); CALCIUM 8.2 mg/dL (8.5-10.1); CARBON DIOXIDE 33.8 mmol/L (21-32); CHLORIDE 98 mmol/L (98-107); CHOL/HDL RATIO 4.4 (0.0-5.0); CHOLESTEROL 167 mg/dL (0-200); COR CA(FOR HYPOALB) 9.4 mg/dL (8.5-10.1); COR NA(FOR HYPERGLY) 138 mmol/L (136-145); CREATINE KINASE 42 Units/L (26-192); CREATINE KINASE MB 2.5 ng/mL (0-4.0); CREATININE 0.55 mg/dL (0.55-1.02); HDL CHOLESTEROL 38 mg/dL (40-60); SODIUM 136 mmol/L (136-145); TOTAL PROTEIN 6.9 g/dL (6.4-8.2); TRIGLYCERIDES 43 mg/dL (0-150); TROPONIN I < 0.02 ng/mL (0-1.5); eGFR NON BLACK RACES > 60 (>60)
[2019-08-14 03:57] LABS: BAND NEUTROPHILS % 2 % (0-10)
[2019-08-14 03:58] LABS: PLATELET MORPHOLOGY COMMENT NORMAL (NORMAL)
[2019-08-14] MEDS ORDERED: DEPAKOTE D.R. TAB PO ONE (04:17)
[2019-08-14] MEDS: DEPAKOTE D.R. TAB PO SCH (05:07)
[2019-08-14] MEDS ORDERED: LEVAQUIN PREMIX IV 250 MG 250 MG/50 ML BAG IV SCH (09:00)
[2019-08-14] MEDS ORDERED: SOLU-Medrol 40 MG VIAL IVP SCH (09:00)
[2019-08-14] MEDS ORDERED: COREG TAB 25 MG PO SCH (09:00)
[2019-08-14] MEDS ORDERED: PROTONIX INJ 40 MG VIAL IVP SCH (09:00)
[2019-08-14] MEDS ORDERED: LASIX PO SCH (09:00)
[2019-08-14] MEDS ORDERED: ZESTRIL TAB 10 MG PO SCH (09:00)
[2019-08-14] MEDS ORDERED: ELIQUIS PO SCH (09:00)
--- NOTE | 2019-08-14 09:07 | DR.H&P ---
H&P History & Physical for Day of: H&P Date: 08/14/19 Chief Complaint Chief Complaint: Chest pain, Abdominal pain Allergies Allergies Allergy/AdvReac Type Severity Reaction Status Date / Time No Known Drug Allergies Allergy Verified 04/16/19 09:30 History of Present Illness History of Present Illness: Patient w/ pmhx CHF, COPD, HTN, MDD, c/o of chest pain and some abdominal pain for the past few days. She states today that her symptoms have now resolved. She believes she had a "stomach bug" that caused her sharp, intermittent, epigastric pain, now resolved. She has had normal bowel movements, no diarrhea. Reports some edema. Denies fevers, chills, shortness of breath, wheezing. Past Medical History Past Medical History: Anxiety, Asthma, CHF, COPD and Depression Past Surgical History Surgical History: Appendectomy, Cholecystectomy, Tonsillectomy and Other Family History Family Medical History: Diabetes Mellitus, [place], Coronary Artery Disease, Heart Failure and Hypertension Social History Does patient currently use any type of tobacco product: Yes Have you used tobacco products in the last 12 months: Yes Type of Tobacco Use: Cigarettes How many years tobacco product used: 40 Does any household member use tobacco: Yes Alcohol Use: None Drug Use: None Medications Home Medications: No Known Drug Allergies Allergy (Verified 04/16/19 09:30) Labs Result Diagrams: 08/14/19 03:12 08/14/19 03:12 Labs: Laboratory WBC 9.8 X10^3/uL (3.6-10.0) 08/14/19 03:12 RBC 4.11 X10^6/uL (3.5-5.4) 08/14/19 03:12 Hgb 12.7 g/dL (12.0-16.0) 08/14/19 03:12 Hct 37.6 % (36.0-47.0) 08/14/19 03:12 MCV 91.5 fL (80.0-100.0) 08/14/19 03:12 MCH 30.9 pg (27.0-34.0) 08/14/19 03:12 MCHC 33.7 g/dL (33.0-35.0) 08/14/19 03:12 RDW 16.8 % (11.6-16.5) H 08/14/19 03:12 Plt Count 309 X10^3/uL (150.0-450.0) 08/14/19 03:12 Plt Count Comment Adequate (ADEQUATE) 08/14/19 03:12 MPV 8.0 fL (7.4-11.0) 08/14/19 03:12 Neut % (Auto) 92.6 % (42.0-75.0) H 08/14/19 03:12 Lymph % (Auto) 5.7 % (21.0-51.0) L 08/14/19 03:12 [place] % (Auto) 0.8 % (0.0-13.0) 08/14/19 03:12 Eos % (Auto) 0.0 % (0.9-2.9) L 08/14/19 03:12 Baso % (Auto) 0.9 % (0.2-1.0) 08/14/19 03:12 Neut # (Auto) 9.1 x10^3/uL (2.2-4.8) H 08/14/19 03:12 Lymph # (Auto) 0.6 X10^3/uL (1.3-2.9) L 08/14/19 03:12 [place] # (Auto) 0.1 x10^3/uL (0.3-0.8) L 08/14/19 03:12 Eos # (Auto) 0.0 x10^3/uL (0.0-0.2) 08/14/19 03:12 Baso # (Auto) 0.1 X10^3/uL (0.0-0.1) 08/14/19 03:12 Absolute Nucleated RBC 0.0 /100WBC 08/14/19 03:12 Total Counted 100 08/14/19 03:12 Neutrophils % (Manual) 87 % (39-76) H 08/14/19 03:12 Band Neutrophils % 2 % (0-10) 08/14/19 03:12 Lymphocytes % (Manual) 11 % (13-43) L 08/14/19 03:12 Plt Morphology Comment Normal (NORMAL) 08/14/19 03:12 RBC Morphology Normal (NORMAL) 08/14/19 03:12 PT 14.4 SECONDS (11.8-14.3) 08/13/19 18:05 INR Target Range - 08/13/19 18:05 INR 1.16 (0.8-1.3) 08/13/19 18:05 APTT 35.3 SECONDS (22.9-36.5) 08/13/19 18:05 PTT Comment - 08/13/19 18:05 Sodium 136 mmol/L (136-145) 08/14/19 03:12 Corrected Sodium 138 mmol/L (136-145) 08/14/19 03:12 Potassium 3.7 mmol/L (3.5-5.1) 08/14/19 03:12 Chloride 98 mmol/L (98-107) 08/14/19 03:12 Carbon Dioxide 33.8 mmol/L (21-32) H 08/14/19 03:12 BUN 8 mg/dL (7-18) 08/14/19 03:12 Creatinine 0.55 mg/dL (0.55-1.02) 08/14/19 03:12 Est GFR (MDRD) Af Amer > 60 (>60) 08/14/19 03:12 Est GFR (MDRD) Non-Af > 60 (>60) 08/14/19 03:12 Glucose 169 mg/dL (65-99) H 08/14/19 03:12 Calcium 8.2 mg/dL (8.5-10.1) L 08/14/19 03:12 Corrected Calcium 9.4 mg/dL (8.5-10.1) 08/14/19 03:12 Magnesium 2.0 mg/dL (1.7-2.9) 08/14/19 03:12 Total Bilirubin 0.30 mg/dL (0.2-1.0) 08/14/19 03:12 AST 25 Units/L (15-37) 08/14/19 03:12 ALT 17 Units/L (12-78) 08/14/19 03:12 Alkaline Phosphatase 129 Units/L (46-116) H 08/14/19 03:12 Creatine Kinase 42 Units/L (26-192) 08/14/19 03:12 CK-MB (CK-2) 2.5 ng/mL (0-4.0) 08/14/19 03:12 CK/CKMB % Calc 6.0 % (<4) 08/14/19 03:12 Troponin I < 0.02 ng/mL (0-1.5) 08/14/19 03:12 Total Protein 6.9 g/dL (6.4-8.2) 08/14/19 03:12 Albumin 2.5 g/dL (3.4-5.0) L 08/14/19 03:12 Globulin 4.4 g/dL (2.5-4.5) 08/14/19 03:12 Albumin/Globulin Ratio 0.6 Ratio (1.1-2.1) L 08/14/19 03:12 Triglycerides 43 mg/dL (0-150) 08/14/19 03:12 Cholesterol 167 mg/dL (0-200) 08/14/19 03:12 LDL Cholesterol, Calc 120 mg/dL (0-100) H 08/14/19 03:12 HDL Cholesterol 38 mg/dL (40-60) L 08/14/19 03:12 Cholesterol/HDL Ratio 4.4 (0.0-5.0) 08/14/19 03:12 Amylase 19 Units/L (25-115) L 08/13/19 18:05 Lipase 112 Units/L (73-393) 08/13/19 18:05 Review of Systems Constitutional: denies Fever and Chills Eyes: No Symptoms Reported ENT: No Symptoms Reported Respiratory: Cough and Pleuritic Pain; denies SOB with Excertion, Sputum and Wheezing Cardiovascular: Chest Pain; denies Edema Gastrointestinal: Abdominal Pain; denies Nausea, Vomiting, Diarrhea and Constipation Genitourinary: No Symptoms Reported Musculoskeletal: No Symptoms Reported Skin: No Symptoms Reported Neurological: No Symptoms Reported Physical Exam Vital Signs: Temperature 98.9 F Pulse Rate [Left Brachial] 84 Pulse Rate 75 Respiratory Rate 20 Blood Pressure [Left Arm] 137/91 Blood Pressure 111/78 O2 Sat by Pulse Oximetry 97 Oriented: Normal Eyes: Normal Ear: Normal Nose: Normal Respiratory: Diminished Throughout and Wheezes Throughout (mild end expiratory) Cardiovascular: Normal : Normal Auscultation: Bowel Sounds: Normal Palpation: Normal Tenderness: Normal Skin: Normal Musculoskeletal: Normal Psychiatric: Normal Mood Description: Anxious Affect: Anxious Speech Pattern: Clear Assessment/Plan (1) Chest pain, rule out acute myocardial infarction: Status: Acute (2) Renal mass, right: Status: Acute (3) COPD (chronic obstructive pulmonary disease): Qualifiers: COPD type: COPD with acute exacerbation Qualified Code(s): J44.1 - Chronic obstructive pulmonary disease with (acute) exacerbation Status: Acute (4) Pneumonia: Status: Acute (5) CHF exacerbation: Status: Acute
[2019-08-14 10:07] LABS: CREATINE KINASE 42 Units/L (26-192); CREATINE KINASE MB 2.1 ng/mL (0-4.0); TROPONIN I < 0.02 ng/mL (0-1.5)
[2019-08-14] MEDS ORDERED: NORCO 7.5/325 MG TAB PO PRN (10:52)
[2019-08-14 12:14] VITALS: BP 121/77
[2019-08-14] MEDS ORDERED: XOPENEX 1.25 MG/3 ML NEBULE NEB SCH (14:00)
[2019-08-14] MEDS ORDERED: LYRICA CAP 50 mg PO SCH (14:00)
[2019-08-14] MEDS ORDERED: CYMBALTA PO SCH (21:00)
[2019-08-14] MEDS ORDERED: BUSPAR PO SCH (21:00)
[2019-08-14] MEDS ORDERED: ZANTAC PO SCH (21:00)
[2019-08-15] MEDS ORDERED: MICRO K EXTEN CAP 10 MEQ PO SCH (09:00)
--- NOTE | 2019-08-16 11:25 | DR.SSS ---
SHORT STAY SUMMARY Admission Date Date of Admission: 08/13/19 Discharge Date Discharge Date: 08/14/19 Admission Diagnoses Admission Diagnoses: Chest pain, rule out myocardial infarction COPD CHF exacerbation Discharge Diagnoses Discharge Diagnoses: CHF exacerbation Renal mass Chest pain rule out Chief Complaint Chief Complaint: Chest and abdominal pain History of Present Illness History of Present Illness: Patient w/ pmhx CHF, COPD, HTN, MDD, c/o of chest pain and some abdominal pain for the past few days. She states today that her symptoms have now resolved. She believes she had a "stomach bug" that caused her sharp, intermittent, epigastric pain, now resolved. She has had normal bowel movements, no diarrhea. Reports some edema. Denies fevers, chills, shortness of breath, wheezing. Past Medical History Past Medical History: Anxiety, Asthma, CHF, COPD and Depression Past Surgical History Surgical History: Appendectomy, Cholecystectomy, Tonsillectomy and Other Allergies Allergies Allergy/AdvReac Type Severity Reaction Status Date / Time No Known Drug Allergies Allergy Verified 04/16/19 09:30 Medications Home Medications: No Known Drug Allergies Allergy (Verified 04/16/19 09:30) Family History Family Medical History: Diabetes Mellitus, [place], Coronary Artery Disease, Heart Failure and Hypertension Social History Does patient currently use any type of tobacco product: Yes Have you used tobacco products in the last 12 months: Yes Type of Tobacco Use: Cigarettes How many years tobacco product used: 40 Does any household member use tobacco: Yes Alcohol Use: None Drug Use: None Review of Systems Constitutional: denies Fever and Chills Eyes: No Symptoms Reported ENT: No Symptoms Reported Respiratory: Shortness of Breath; denies Wheezing Cardiovascular: Chest Pain and Edema Gastrointestinal: Abdominal Pain; denies Nausea, Vomiting, Diarrhea and Constipation Genitourinary: No Symptoms Reported Musculoskeletal: No Symptoms Reported Skin: No Symptoms Reported Neurological: No Symptoms Reported Physical Exam Vital Signs: Last Vital Signs Temp 98.3 F 08/14/19 12:00 Pulse 67 08/14/19 12:00 Resp 19 08/14/19 12:00 BP 121/77 08/14/19 12:00 Pulse Ox 92 L 08/14/19 12:00 Oriented: Normal Eyes: Normal Ear: Normal Nose: Normal Respiratory: Clear Throughout Cardiovascular: Normal : Normal Auscultation: Bowel Sounds: Normal Palpation: Normal Tenderness: Normal Skin: Normal Musculoskeletal: Normal Psychiatric: Anxiety Mood Description: Anxious Affect: Anxious Speech Pattern: Clear Labs Labs: Laboratory Last Values WBC 9.8 X10^3/uL (3.6-10.0) 08/14/19 03:12 RBC 4.11 X10^6/uL (3.5-5.4) 08/14/19 03:12 Hgb 12.7 g/dL (12.0-16.0) 08/14/19 03:12 Hct 37.6 % (36.0-47.0) 08/14/19 03:12 MCV 91.5 fL (80.0-100.0) 08/14/19 03:12 MCH 30.9 pg (27.0-34.0) 08/14/19 03:12 MCHC 33.7 g/dL (33.0-35.0) 08/14/19 03:12 RDW 16.8 % (11.6-16.5) H 08/14/19 03:12 Plt Count 309 X10^3/uL (150.0-450.0) 08/14/19 03:12 Plt Count Comment Adequate (ADEQUATE) 08/14/19 03:12 MPV 8.0 fL (7.4-11.0) 08/14/19 03:12 Neut % (Auto) 92.6 % (42.0-75.0) H 08/14/19 03:12 Lymph % (Auto) 5.7 % (21.0-51.0) L 08/14/19 03:12 [place] % (Auto) 0.8 % (0.0-13.0) 08/14/19 03:12 Eos % (Auto) 0.0 % (0.9-2.9) L 08/14/19 03:12 Baso % (Auto) 0.9 % (0.2-1.0) 08/14/19 03:12 Neut # (Auto) 9.1 x10^3/uL (2.2-4.8) H 08/14/19 03:12 Lymph # (Auto) 0.6 X10^3/uL (1.3-2.9) L 08/14/19 03:12 [place] # (Auto) 0.1 x10^3/uL (0.3-0.8) L 08/14/19 03:12 Eos # (Auto) 0.0 x10^3/uL (0.0-0.2) 08/14/19 03:12 Baso # (Auto) 0.1 X10^3/uL (0.0-0.1) 08/14/19 03:12 Absolute Nucleated RBC 0.0 /100WBC 08/14/19 03:12 Total Counted 100 08/14/19 03:12 Neutrophils % (Manual) 87 % (39-76) H 08/14/19 03:12 Band Neutrophils % 2 % (0-10) 08/14/19 03:12 Lymphocytes % (Manual) 11 % (13-43) L 08/14/19 03:12 Plt Morphology Comment Normal (NORMAL) 08/14/19 03:12 RBC Morphology Normal (NORMAL) 08/14/19 03:12 PT 14.4 SECONDS (11.8-14.3) 08/13/19 18:05 INR Target Range - 08/13/19 18:05 INR 1.16 (0.8-1.3) 08/13/19 18:05 APTT 35.3 SECONDS (22.9-36.5) 08/13/19 18:05 PTT Comment - 08/13/19 18:05 Sodium 136 mmol/L (136-145) 08/14/19 03:12 Corrected Sodium 138 mmol/L (136-145) 08/14/19 03:12 Potassium 3.7 mmol/L (3.5-5.1) 08/14/19 03:12 Chloride 98 mmol/L (98-107) 08/14/19 03:12 Carbon Dioxide 33.8 mmol/L (21-32) H 08/14/19 03:12 BUN 8 mg/dL (7-18) 08/14/19 03:12 Creatinine 0.55 mg/dL (0.55-1.02) 08/14/19 03:12 Est GFR (MDRD) Af Amer > 60 (>60) 08/14/19 03:12 Est GFR (MDRD) Non-Af > 60 (>60) 08/14/19 03:12 Glucose 169 mg/dL (65-99) H 08/14/19 03:12 Calcium 8.2 mg/dL (8.5-10.1) L 08/14/19 03:12 Corrected Calcium 9.4 mg/dL (8.5-10.1) 08/14/19 03:12 Magnesium 2.0 mg/dL (1.7-2.9) 08/14/19 03:12 Total Bilirubin 0.30 mg/dL (0.2-1.0) 08/14/19 03:12 AST 25 Units/L (15-37) 08/14/19 03:12 ALT 17 Units/L (12-78) 08/14/19 03:12 Alkaline Phosphatase 129 Units/L (46-116) H 08/14/19 03:12 Creatine Kinase 42 Units/L (26-192) 08/14/19 09:35 CK-MB (CK-2) 2.1 ng/mL (0-4.0) 08/14/19 09:35 CK/CKMB % Calc 5.0 % (<4) 08/14/19 09:35 Troponin I < 0.02 ng/mL (0-1.5) 08/14/19 09:35 Total Protein 6.9 g/dL (6.4-8.2) 08/14/19 03:12 Albumin 2.5 g/dL (3.4-5.0) L 08/14/19 03:12 Globulin 4.4 g/dL (2.5-4.5) 08/14/19 03:12 Albumin/Globulin Ratio 0.6 Ratio (1.1-2.1) L 08/14/19 03:12 Triglycerides 43 mg/dL (0-150) 08/14/19 03:12 Cholesterol 167 mg/dL (0-200) 08/14/19 03:12 LDL Cholesterol, Calc 120 mg/dL (0-100) H 08/14/19 03:12 HDL Cholesterol 38 mg/dL (40-60) L 08/14/19 03:12 Cholesterol/HDL Ratio 4.4 (0.0-5.0) 08/14/19 03:12 Amylase 19 Units/L (25-115) L 08/13/19 18:05 Lipase 112 Units/L (73-393) 08/13/19 18:05 Assessment/Plan 1: CHF exacerbation -Pt had CT abd/pelvis negative for acute abnormalities. She did receive one dose of Lasix in ED that resolved her shortness of breath. Instructed to take home Lasix daily and follow up w/ pcp on discharge. 2: Chest pain rule out -CE negative 3: Renal mass -CT A/P commented on 5cm cystic mass on lower pole of R kidney. Recommend outpatient follow up. Discussed with patient and daughter. Hospital Course Hospital Course: Pt admitted for shortness of breath and abdominal pain. Her symptoms had resolved on examination and patient was anxious to go home. The above problems were addressed. Her vitals were wnl, physical exam unremarkable, and patient was medically stable for discharge. Instructed to follow up with pcp. Discharge Medications Discharge Medications: Prescriptions: Discharge Disposition Discharge Disposition: Home
== END 2019-08-14 12:35 | disposition home or self-care (01) ==
LOC: ER 16:59 → MED/SURG 16:59
PROVIDERS: ADMIT Family Medicine; ATTEND Family Medicine
CPT/HCPCS: 36415; 70450; 71010; 71045; 74176; 80053; 80061; 82150; 82550; 82553; 83690; 83735; 84484; 85025; 85610; 85730; 87086; 93005; 94640; 94760; 96360; 96361; 96365; 96367; 96372; 96374; 96375; 99284; A4216; A4222; C9113; G0378; J0696; J1940; J1956; J2920; J2930; J3475; J7030; J7050; J7620; J8499

== ENCOUNTER 2019-12-16 07:58 | Inpatient (IN) ==
[2019-12-16 08:37] VITALS: BMI 28.0
--- NOTE | 2019-12-16 08:56 | DR.ARRHYTH ---
HPI Time Seen Time Seen by Provider: 12/16/19 08:15 PCP Primary Care Physician: Janel HPI Comment HPI Comment: PATIENT IS 59YR OLD FEMALE IN ER WITH TACHYCARDIA, SOB AND CHEST PAIN NOTED WHEN PATIENT WOKE UP THIS MORNING. HISTORY SVT. RECENT VA AND A FIB. NO FEVER. PATIENT SYMPTOMS IMPROVING. HEART RATE WAS MORE RAPID AT HOME. NO DYSURIA. PATIENT IS WEAK AND DIZZY. Complaint Chief Complaint Doctor Comments: RAPID HEART RATE, SOB AND CHEST SINCE SHE WOKE UP THIS AM. Chief Complaint:: Patient states that she woke up this morning with an elevated heart rate. She states that she has had a history of afib in the past. COVID-19 Coronavirus risk:travel/contact w/high risk person: No Has patient experienced Coronavirus symptoms: No Reviewed Nursing Notes Reviewed: Yes Source History Provided: Patient Mode of Arrival Mode of Arrival: Stretcher Timing Onset of Chief Complaint: 12/16/19 Duration Duration: Constant Duration: Hours Context Onset: While Asleep Possible Medication-Induced: No Possible Drug-Induced: No History: PSVT, Arrythmia and Palpitations Severity Severity: Rapid Modifying Factors Modifying Factors: Worsens: Nothing Associated Signs and Symptoms Associated Signs and Symptoms: Chest Pain, Dyspnea, Nausea and Near-syncope If Chest Pain Quality: Heavy (TIGHTNESS.) Location: Substernal Duration since onset: Hours Other History Other History: HISTORY SVT/A FIB. PMH PMH Past Medical History: Yes Past Medical History: Anxiety, CHF, COPD, Dyslipidemia, GERD, Hypertension, VA and SVT Past Surgical History: Yes Surgical History: Appendectomy, Cholecystectomy and Tonsillectomy Family History History of Family Medical Conditions: Yes Family Medical History: Diabetes Mellitus, [place], Coronary Artery Disease, Heart Failure and Hypertension Social History Does patient currently use any type of tobacco product: Yes Have you used tobacco products in the last 12 months: Yes Type of Tobacco Use: Cigarettes Does any household member use tobacco: Yes Alcohol Use: None Do you use any recreational Drugs:: No Lives With: Family Lives Where: Home Infectious screening In the last 2 months have you had wt loss of >10#?: NO Have you had fever, night sweats or hemotysis?: No Have you traveled outside the country in the last 6 months?: No Isolation: Standard ROS Review of Systems Constitutional: See HPI, Weakness and Fatigue; negative Fever Eyes: No Symptoms Reported and See HPI; negative Blurred Vision and Diplopia ENTM: No Symptoms Reported and See HPI; negative Ear Pain, Nose Discharge, Nose Congestion and Throat Pain Respiratoy: See HPI, Moist Cough and Short of Breath; negative Wheezing Cardiovascular: See HPI, Chest Pain, Edema and Palpitations Gastrointestinal/Abdominal: See HPI and Nausea; negative Abdominal Pain, Diarrhea and Vomiting Genitourinary: No Symptoms Reported and See HPI; negative Dysuria, Frequency and Hematuria Neurological: See HPI, Headache, Weakness and Dizziness Musculoskeletal: See HPI and Back Pain; negative Muscle Pain Integumentary: See HPI and Change in Color; negative Rash and Juandice Hematologic/Lymphatic: No Symptoms Reported, See HPI and Easy Bruising; negative Swollen Glands Endocrine: No Symptoms Reported and See HPI; negative Increased Thirst and Increased Urine Psychiatric: No Symptoms Reported and See HPI All Other Systems: Reviewed and Negative PE Vitals Vital Signs: Temp Pulse Pulse Resp BP BP BP 12/17/19 13:55 121 H 20 90/50 12/17/19 13:29 119 H 22 80/58 80/58 12/17/19 12:00 97.7 F 119 H 20 117/79 12/17/19 11:45 124 H 12/17/19 09:44 18 12/17/19 08:44 18 12/17/19 07:29 97.8 F 122 H 20 127/86 12/17/19 04:00 98.0 F 120 H 24 98/81 12/17/19 01:42 108 H 12/17/19 00:00 97.6 F 112 H 22 120/82 12/16/19 20:00 98.3 F 117 H 26 H 115/65 12/16/19 17:10 97.8 F 119 H 20 103/74 12/16/19 17:07 115 H 16 121/87 12/16/19 13:50 112 H 18 97/75 12/16/19 13:44 94 H 22 106/68 12/16/19 09:30 118 H 25 H 116/70 12/16/19 09:15 120 H 24 122/83 12/16/19 09:00 118 H 34 H 130/84 12/16/19 08:44 120 H 20 134/83 12/16/19 08:29 120 H 22 132/79 04/09/20 08:14 122 H 23 12/16/19 08:10 99.7 F H 122 H 22 138/86 12/09/19 23:01 165/83 Pulse Ox 12/17/19 13:55 12/17/19 13:29 12/17/19 12:00 99 12/17/19 11:45 97 12/17/19 09:44 12/17/19 08:44 12/17/19 07:29 98 12/17/19 04:00 97 12/17/19 01:42 95 12/17/19 00:00 97 12/16/19 20:00 92 L 12/16/19 17:10 100 12/16/19 17:07 99 12/16/19 13:50 100 12/16/19 13:44 99 12/16/19 09:30 12/16/19 09:15 12/16/19 09:00 12/16/19 08:44 94 L 12/16/19 08:29 94 L 12/16/19 08:14 94 L 12/16/19 08:10 94 L 12/09/19 23:01 General Limitations: No Limitations General Appearance: Alert and In No Apparent Distress Head Head Exam: Normal Inspection and Atraumatic Eyes Eyes: Normal Eye exam: Normal Appearance and PERRL; negative Scleral Icterus and Conjunctival Injection ENT ENT Exam: Normal Exam, Normal Oropharynx, Normal External Ear Exam and TM's Normal Bilaterally Neck Neck Exam: Normal Inspection and Trachea Midline; negative Tenderness and Lymphadenopathy Chest Chest Inspection: Normal Inspection; negative Tenderness Respiratory Respiratory Exam: Normal Lung Sounds Bilat and Respiratory Distress; negative Accessory Muscle Use and Chest Wall Tenderness Respiratory Exam: Bilateral: Rhonchi and Lower: Rhonchi Cardiovascular Cardiovascular Exam: Normal Rhythm, Tachycardia and Normal Heart Sounds; negative Systolic Murmur and Diastolic Murmur Abdominal Exam Abdominal Exam: Normal Inspection, Normal Bowel Sounds and Soft; negative Tenderness Rectal Rectal Exam: Deferred Extremities Extremities Exam: Normal Capillary Refill and Edema (FEET); negative Calf Te nderness Back Back Exam: Normal Inspection; negative (R) CVA Tenderness and (L) CVA Tenderness Neurologic Neurological Exam: Alert, Oriented X3, CN II-XII Intact and Normal Gait; negative Motor Sensory Deficit Psychiatric Psychiatric Exam: Normal Affect and Normal Mood Skin Skin Exam: Erythema; negative Rash MDM Additional Information Additional Information Obtained From: Old Records Differential Diagnosis Atrial: Atrial Dysrhythmia, PSVT and Sinus Tachycardia Ventricular: Angina/VA Miscellaneous: Electrolyte Disorder and Pulmonary Embolus COURSE Treatment Treatment: SEE ORDERS. MONITOR ST AND SVT. Education/Counseling Education/Counseling: Patient Educated On: Diagnosis ROR Labs Reviewed Laboratory Results Reviewed?: Yes Result Diagrams: 12/20/19 05:00 12/20/19 05:00 Laboratory: WBC 9.1 X10^3/uL (3.6-10.0) 12/17/19 05:20 RBC 3.59 X10^6/uL (3.5-5.4) 12/17/19 05:20 Hgb 9.7 g/dL (12.0-16.0) L 12/17/19 05:20 Hct 30.4 % (36.0-47.0) L 12/17/19 05:20 MCV 84.6 fL (80.0-100.0) 12/17/19 05:20 MCH 27.0 pg (27.0-34.0) 12/17/19 05:20 MCHC 31.9 g/dL (33.0-35.0) L 12/17/19 05:20 RDW 16.7 % (11.6-16.5) H 12/17/19 05:20 Plt Count 251 X10^3/uL (150.0-450.0) 12/17/19 05:20 MPV 8.9 fL (7.4-11.0) 12/17/19 05:20 Neut % (Auto) 64.3 % (42.0-75.0) 12/17/19 05:20 Lymph % (Auto) 28.8 % (21.0-51.0) 12/17/19 05:20 [place] % (Auto) 6.2 % (0.0-13.0) 12/17/19 05:20 Eos % (Auto) 0.3 % (0.9-2.9) L 12/17/19 05:20 Baso % (Auto) 0.4 % (0.2-1.0) 12/17/19 05:20 Neut # (Auto) 5.8 x10^3/uL (2.2-4.8) H 12/17/19 05:20 Lymph # (Auto) 2.6 X10^3/uL (1.3-2.9) 12/17/19 05:20 [place] # (Auto) 0.6 x10^3/uL (0.3-0.8) 12/17/19 05:20 Eos # (Auto) 0.0 x10^3/uL (0.0-0.2) 12/17/19 05:20 Baso # (Auto) 0.0 X10^3/uL (0.0-0.1) 12/17/19 05:20 Absolute Nucleated RBC 0.4 /100WBC 12/17/19 05:20 PT 15.8 SECONDS (11.8-14.3) 12/17/19 05:20 INR Target Range - 12/17/19 05:20 INR 1.30 (0.8-1.3) 12/17/19 05:20 APTT 33.2 SECONDS (22.9-36.5) 12/17/19 05:20 PTT Comment - 12/17/19 05:20 Sodium 137 mmol/L (136-145) 12/17/19 05:20 Corrected Sodium 138 mmol/L (136-145) 12/17/19 05:20 Potassium 3.7 mmol/L (3.5-5.1) 12/17/19 05:20 Chloride 102 mmol/L (98-107) 12/17/19 05:20 Carbon Dioxide 26.7 mmol/L (21-32) 12/17/19 05:20 BUN 12 mg/dL (7-18) 12/17/19 05:20 Creatinine 0.86 mg/dL (0.55-1.02) 12/17/19 05:20 Est GFR (MDRD) Af Amer > 60 (>60) 12/17/19 05:20 Est GFR (MDRD) Non-Af > 60 (>60) 12/17/19 05:20 Glucose 131 mg/dL (65-99) H 12/17/19 05:20 Calcium 7.7 mg/dL (8.5-10.1) L 12/17/19 05:20 Corrected Calcium 8.7 mg/dL (8.5-10.1) 12/17/19 05:20 Magnesium 1.7 mg/dL (1.7-2.9) 12/17/19 13:52 Total Bilirubin 0.40 mg/dL (0.2-1.0) 12/17/19 05:20 AST 34 Units/L (15-37) 12/17/19 05:20 ALT 30 Units/L (12-78) 12/17/19 05:20 Alkaline Phosphatase 163 Units/L (46-116) H 12/17/19 05:20 Creatine Kinase 48 Units/L (26-192) 12/17/19 13:52 CK-MB (CK-2) 1.6 ng/mL (0-4.0) 12/17/19 13:52 CK/CKMB % Calc 3.3 % (<4) 12/17/19 13:52 Troponin I 0.06 ng/mL (0-1.5) 12/17/19 13:52 Total Protein 6.8 g/dL (6.4-8.2) 12/17/19 05:20 Albumin 2.8 g/dL (3.4-5.0) L 12/17/19 05:20 Globulin 4.0 g/dL (2.5-4.5) 12/17/19 05:20 Albumin/Globulin Ratio 0.7 Ratio (1.1-2.1) L 12/17/19 05:20 Specimen Type Clean catch urine 12/17/19 00:02 Urine Color Pale yellow (YELLOW) 12/17/19 00:02 Urine Appearance Clear (CLEAR) 12/17/19 00:02 Urine pH 6.0 (5.0 - 8.0) 12/17/19 00:02 Ur Specific [place] 1.010 (1.000-1.030) 12/17/19 00:02 Urine Protein Negative (NEGATIVE) 12/17/19 00:02 Urine Glucose (UA) Negative (NEGATIVE) 12/17/19 00:02 Urine Ketones Negative (NEGATIVE) 12/17/19 00:02 Urine Occult Blood 1+ (NEGATIVE) 12/17/19 00:02 Urine Nitrite Negative (NEGATIVE) 12/17/19 00:02 Urine Bilirubin Negative (NEGATIVE) 12/17/19 00:02 Urine Urobilinogen Normal (NORMAL) 12/17/19 00:02 Ur Leukocyte Esterase 1+ (NEGATIVE) 12/17/19 00:02 Urine RBC 0-2 /HPF (0-3) 12/17/19 00:02 Urine WBC None seen /HPF (0-5) 12/17/19 00:02 Ur Squamous Epith Cells Rare /HPF (NEGATIVE) 12/17/19 00:02 Urine Bacteria Negative /HPF (NEGATIVE) 12/17/19 00:02 Ur Culture Indicated? No/not indicated 12/17/19 00:02 XRAY XRAY Interpreted by: Radiologist (REPORT NOTED AND DISCUSSED WITH PATIENT.) and Self EKG Rate: 119 [place]: Normal Rhythm: ST Block: None Hypertrophy: LVH ST: Normal Opioid Opioid Risk Tool Family Hx of Substance Abuse: Alcohol Personal Hx of Substance Abuse: Prescription Drugs Age ([place] box if 16-45): No History of Preadolescent Sexual Abuse: No Psychological Disease: Bipolar Total: 0 Total Score Risk Category: Low Risk Copyright: Carlos [employer] predicting aberrant behaviors Diagnosis Discharge Problem: Abnormal cardiac enzyme level, Tachycardia, History of supraventricular tachycardia Instructions Instructions: Fall Prevention in the Home, Adult, [id number] Steps to Quit Smoking, [id number] Chronic Obstructive Pulmonary Disease, [id number] Supraventricular Tachycardia, Adult, [id number] Hypertension, [id number] Forms: Precautions for COVID19 Patient Portal Social Distancing
--- NOTE | 2019-12-16 09:27 | RAD ---
HISTORYCP hypertension COPD CHF.STUDYCHEST, 1 VIEWCOMPARISONChest film December 09, 2019.FINDINGSThe trachea is midline. The cardiac silhouette is mildly enlarged but stable in size.. Central vascular prominence is unchanged from the last film a week ago. The linear discoid atelectasis or parenchymal scarring is also stable. No new infiltrates or effusions are observed. The lungs are clear without focal infiltrate or effusion. The bony thorax is unremarkable.IMPRESSIONStable cardiomegaly central prominence of the vascularity and stable linear infiltrates or atelectasis versus parenchymal scarring right midlung field. There is no change from the last film December 09, 2019.Electronically signed by: ROBERT QUAN (Dec 16, 2019 09:25:45)
[2019-12-16 10:00] LABS: BASOPHILS % (AUTO) 0.5 % (0.2-1.0); EOSINOPHILS % (AUTO) 0.1 % (0.9-2.9); HEMATOCRIT 28.2 % (36.0-47.0); HEMOGLOBIN 9.1 g/dL (12.0-16.0); LYMPHOCYTES # (AUTO) 1.4 X10^3/uL (1.3-2.9); LYMPHOCYTES % (AUTO) 15.8 % (21.0-51.0); MEAN CORPUSCULAR HGB CONC 32.4 g/dL (33.0-35.0); MEAN CORPUSCULAR VOLUME 83.3 fL (80.0-100.0); MEAN PLATELET VOLUME 8.2 fL (7.4-11.0); MONOCYTES # (AUTO) 0.8 x10^3/uL (0.3-0.8); MONOCYTES % (AUTO) 8.7 % (0.0-13.0); NEUTROPHILS # (AUTO) 6.7 x10^3/uL (2.2-4.8); NEUTROPHILS % (AUTO) 74.9 % (42.0-75.0); PLATELET COUNT 233 X10^3/uL (150.0-450.0); RED BLOOD COUNT 3.39 X10^6/uL (3.5-5.4); RED CELL DISTRIBUTION WIDTH 16.8 % (11.6-16.5); WHITE BLOOD COUNT 8.9 X10^3/uL (3.6-10.0)
[2019-12-16 10:16] LABS: BLOOD UREA NITROGEN 15 mg/dL (7-18); CALCIUM 7.8 mg/dL (8.5-10.1); CARBON DIOXIDE 26.2 mmol/L (21-32); CHLORIDE 106 mmol/L (98-107); CREATININE 0.88 mg/dL (0.55-1.02); SODIUM 142 mmol/L (136-145); eGFR NON BLACK RACES > 60 (>60)
[2019-12-16 10:17] LABS: ALANINE AMINOTRANSFERASE 29 Units/L (12-78); ALBUMIN 2.7 g/dL (3.4-5.0); ALKALINE PHOSPHATASE 139 Units/L (46-116); ASPARTATE AMINO TRANSFERASE 28 Units/L (15-37); CKMB % 3.3 % (<4); COR CA(FOR HYPOALB) 8.8 mg/dL (8.5-10.1); CREATINE KINASE 45 Units/L (26-192); CREATINE KINASE MB 1.5 ng/mL (0-4.0); TOTAL PROTEIN 6.5 g/dL (6.4-8.2)
[2019-12-16] MEDS ORDERED: LOPRESSOR TAB 25 MG PO ONE ×2 (11:11→20:57)
[2019-12-16 13:11] LABS: CKMB % 3.7 % (<4); CREATINE KINASE MB 1.7 ng/mL (0-4.0); TROPONIN I 0.12 ng/mL (0-1.5)
[2019-12-16] MEDS ORDERED: K-DUR TAB 20 MEQ PO PRN (17:36)
[2019-12-16] MEDS ORDERED: POTASSIUM CHLORIDE LIQ 20 MEQ UDC PO PRN (17:36)
[2019-12-16] MEDS ORDERED: KLOR-CON PO PRN (17:36)
[2019-12-16] MEDS ORDERED: K-RIDER 10 MEQ/NS 100 ML 10 MEQ/100 ML BAG IV PRN (17:36)
[2019-12-16] MEDS ORDERED: POTASSIUM CHL 40 MEQ/NS 0.45% 500 ML IV PRN (17:36)
[2019-12-16] MEDS ORDERED: POTASSIUM CHL 60 MEQ/NS 0.45% 500 ML IV PRN (17:36)
[2019-12-16] MEDS ORDERED: MICRO K EXTEN CAP 10 MEQ PO PRN (17:36)
[2019-12-16] MEDS ORDERED: NS 250 ML IV 250 ML IV ONE (17:51)
[2019-12-16] MEDS ORDERED: NS 250 ML IV 250 ML IV PRN (17:52)
[2019-12-16] MEDS: MAGNESIUM SULFATE 1 GRAM/100 mL PREMIX 1 GM/100 ML BAG IV PRN ×4 (18:00→22:07)
[2019-12-16] MEDS ORDERED: PROVENTIL NEB TX 0.083% 2.5MG/ 3ML NEB SCH (21:00)
[2019-12-16] MEDS: CYMBALTA PO SCH (21:30)
[2019-12-16] MEDS: DESYREL PO SCH (21:30)
[2019-12-16 23:36] LABS: CKMB % 2.3 % (<4); TROPONIN I 0.08 ng/mL (0-1.5)
[2019-12-17 00:21] LABS: BILIRUBIN,URINE NEGATIVE (NEGATIVE); BLOOD/HEMOGLOBIN,URINE 1+ (NEGATIVE); GLUCOSE, URINE NEGATIVE (NEGATIVE); KETONES,URINE NEGATIVE (NEGATIVE); LEUKOCYTE ESTERASE ,URINE 1+ (NEGATIVE); NITRITES,URINE NEGATIVE (NEGATIVE); PROTEIN,URINE NEGATIVE (NEGATIVE); UROBILINOGEN,URINE NORMAL (NORMAL)
[2019-12-17 00:24] LABS: APPEARANCE,URINE CLEAR (CLEAR); BACTERIA,URINE NEGATIVE /HPF (NEGATIVE); COLOR,URINE PALE YELLOW (YELLOW); RBC,URINE 0-2 /HPF (0-3); SQUAMOUS EPITHELIAL CELL,UR RARE /HPF (NEGATIVE)
[2019-12-17] MEDS: XOPENEX 1.25 MG/3 ML NEBULE NEB SCH ×4 (01:42→17:33)
[2019-12-17 05:50] LABS: BASOPHILS % (AUTO) 0.4 % (0.2-1.0); EOSINOPHILS % (AUTO) 0.3 % (0.9-2.9); HEMATOCRIT 30.4 % (36.0-47.0); HEMOGLOBIN 9.7 g/dL (12.0-16.0); LYMPHOCYTES # (AUTO) 2.6 X10^3/uL (1.3-2.9); LYMPHOCYTES % (AUTO) 28.8 % (21.0-51.0); MEAN CORPUSCULAR HGB CONC 31.9 g/dL (33.0-35.0); MEAN CORPUSCULAR VOLUME 84.6 fL (80.0-100.0); MEAN PLATELET VOLUME 8.9 fL (7.4-11.0); MONOCYTES # (AUTO) 0.6 x10^3/uL (0.3-0.8); MONOCYTES % (AUTO) 6.2 % (0.0-13.0); NEUTROPHILS # (AUTO) 5.8 x10^3/uL (2.2-4.8); NEUTROPHILS % (AUTO) 64.3 % (42.0-75.0); PLATELET COUNT 251 X10^3/uL (150.0-450.0); RED BLOOD COUNT 3.59 X10^6/uL (3.5-5.4); RED CELL DISTRIBUTION WIDTH 16.7 % (11.6-16.5); WHITE BLOOD COUNT 9.1 X10^3/uL (3.6-10.0)
[2019-12-17 06:06] LABS: ALANINE AMINOTRANSFERASE 30 Units/L (12-78); ALBUMIN 2.8 g/dL (3.4-5.0); ALKALINE PHOSPHATASE 163 Units/L (46-116); ASPARTATE AMINO TRANSFERASE 34 Units/L (15-37); BLOOD UREA NITROGEN 12 mg/dL (7-18); CALCIUM 7.7 mg/dL (8.5-10.1); CARBON DIOXIDE 26.7 mmol/L (21-32); CHLORIDE 102 mmol/L (98-107); COR CA(FOR HYPOALB) 8.7 mg/dL (8.5-10.1); COR NA(FOR HYPERGLY) 138 mmol/L (136-145); CREATININE 0.86 mg/dL (0.55-1.02); MAGNESIUM 1.9 mg/dL (1.7-2.9); SODIUM 137 mmol/L (136-145); TOTAL PROTEIN 6.8 g/dL (6.4-8.2); eGFR NON BLACK RACES > 60 (>60)
[2019-12-17] MEDS ORDERED: ZANAFLEX PO PRN (07:46)
[2019-12-17] MEDS: NORCO 7.5/325 MG TAB PO PRN (08:44)
[2019-12-17] MEDS: PROTONIX TAB 40 MG PO SCH (08:46)
[2019-12-17] MEDS: LOPRESSOR TAB 25 MG PO SCH ×2 (08:46→22:09)
[2019-12-17] MEDS: ELIQUIS PO SCH ×2 (08:46→20:53)
[2019-12-17] MEDS ORDERED: DEPAKOTE D.R. TAB PO ONE ×3 (08:47→20:22)
[2019-12-17] MEDS: DEPAKOTE D.R. TAB PO SCH ×3 (08:49→20:53)
[2019-12-17] MEDS: CYMBALTA PO SCH (08:55)
[2019-12-17] MEDS ORDERED: ZOFRAN INJ 4 MG VIAL ONE (11:56)
[2019-12-17] MEDS: ZOFRAN INJ 4 MG VIAL IVP PRN (12:03)
[2019-12-17 14:20] LABS: CKMB % 3.3 % (<4); CREATINE KINASE MB 1.6 ng/mL (0-4.0); MAGNESIUM 1.7 mg/dL (1.7-2.9); TROPONIN I 0.06 ng/mL (0-1.5)
[2019-12-17] MEDS ORDERED: LANOXIN INJ IVP STA (14:45)
[2019-12-17] MEDS ORDERED: LANOXIN INJ ONE (15:09)
[2019-12-17] MEDS: LYRICA CAP 50 mg PO SCH ×2 (15:31→20:53)
--- NOTE | 2019-12-17 17:46 | DR.H&P ---
H&P History & Physical for Day of: H&P Date: 12/17/19 Chief Complaint Chief Complaint: palpitations, elevated HR Allergies Allergies Allergy/AdvReac Type Severity Reaction Status Date / Time adhesive tape Allergy Verified 11/28/19 19:39 History of Present Illness History of Present Illness: Ms. Garcia is a 59y/o female with a PMH of atrial fibrillation, CAD, chronic back pain presented with palpitations. She has had frequent visits to the ED for elevated HR due to afib RVR or SVT and usually resolves with adenosine or metoprolol. Patient presented with elevated troponin in early november and was transferred for a cath. She had a LHC done which did not show severe disease requiring stenting. She had an ablation done in 2014 for atrial flutter. She sees cardiology in [place] but has not followed up since last month after her cath. Echo showed EF 65-70% with severe pulmonary HTN. She denies any recent changes in her medications. She also has COPD on home oxygen. Denies chest pain or tightness. Reports nausea, no vomiting or diarrhea. ED work-up: HR noted to be in 120's, Sinus tach on EKG, given metoprolol tartrate 12.5 mg PO. Patient's BP dropped into the 90s. CXR: persistent pulmonary congestion, no effusions or infiltrate, no change from prev CXR Troponin 0.10 , 0.12, 0.08, low magnesium and potassium Patient was initially started on metoprolol 12.5 mg BID yesterday but continued to have HR in 110-120. Increased metoprolol to 25 mg BID, stopped coreg, Lasix due to hypotension. Also stopped tizanidine and duloxetine. Give one dose of digoxin now, monitor AM labs and vitals. Past Medical History Past Medical History: Anxiety, CHF, COPD, Dyslipidemia, GERD, Hypertension, MT and SVT Past Surgical History Surgical History: Appendectomy, Cholecystectomy, Ortho Surgery and Tonsillectomy Family History Family Medical History: Diabetes Mellitus, Coronary Artery Disease and Hypertension Social History Does patient currently use any type of tobacco product: Yes Have you used tobacco products in the last 12 months: Yes Type of Tobacco Use: Cigarettes How many years tobacco product used: 40 Does any household member use tobacco: Yes Alcohol Use: None Drug Use: None Medications Home Medications: adhesive tape Allergy (Verified 11/28/19 19:39) CONTINUE taking the following medications trazodone 150 mg PO HS 12/16/19 [History] Labs Result Diagrams: 12/17/19 05:20 12/17/19 05:20 Labs: Laboratory WBC 9.1 X10^3/uL (3.6-10.0) 12/17/19 05:20 RBC 3.59 X10^6/uL (3.5-5.4) 12/17/19 05:20 Hgb 9.7 g/dL (12.0-16.0) L 12/17/19 05:20 Hct 30.4 % (36.0-47.0) L 12/17/19 05:20 MCV 84.6 fL (80.0-100.0) 12/17/19 05:20 MCH 27.0 pg (27.0-34.0) 12/17/19 05:20 MCHC 31.9 g/dL (33.0-35.0) L 12/17/19 05:20 RDW 16.7 % (11.6-16.5) H 12/17/19 05:20 Plt Count 251 X10^3/uL (150.0-450.0) 12/17/19 05:20 MPV 8.9 fL (7.4-11.0) 12/17/19 05:20 Neut % (Auto) 64.3 % (42.0-75.0) 12/17/19 05:20 Lymph % (Auto) 28.8 % (21.0-51.0) 12/17/19 05:20 [place] % (Auto) 6.2 % (0.0-13.0) 12/17/19 05:20 Eos % (Auto) 0.3 % (0.9-2.9) L 12/17/19 05:20 Baso % (Auto) 0.4 % (0.2-1.0) 12/17/19 05:20 Neut # (Auto) 5.8 x10^3/uL (2.2-4.8) H 12/17/19 05:20 Lymph # (Auto) 2.6 X10^3/uL (1.3-2.9) 12/17/19 05:20 [place] # (Auto) 0.6 x10^3/uL (0.3-0.8) 12/17/19 05:20 Eos # (Auto) 0.0 x10^3/uL (0.0-0.2) 12/17/19 05:20 Baso # (Auto) 0.0 X10^3/uL (0.0-0.1) 12/17/19 05:20 Absolute Nucleated RBC 0.4 /100WBC 12/17/19 05:20 PT 15.8 SECONDS (11.8-14.3) 12/17/19 05:20 INR Target Range - 12/17/19 05:20 INR 1.30 (0.8-1.3) 12/17/19 05:20 APTT 33.2 SECONDS (22.9-36.5) 12/17/19 05:20 PTT Comment - 12/17/19 05:20 Sodium 137 mmol/L (136-145) 12/17/19 05:20 Corrected Sodium 138 mmol/L (136-145) 12/17/19 05:20 Potassium 3.7 mmol/L (3.5-5.1) 12/17/19 05:20 Chloride 102 mmol/L (98-107) 12/17/19 05:20 Carbon Dioxide 26.7 mmol/L (21-32) 12/17/19 05:20 BUN 12 mg/dL (7-18) 12/17/19 05:20 Creatinine 0.86 mg/dL (0.55-1.02) 12/17/19 05:20 Est GFR (MDRD) Af Amer > 60 (>60) 12/17/19 05:20 Est GFR (MDRD) Non-Af > 60 (>60) 12/17/19 05:20 Glucose 131 mg/dL (65-99) H 12/17/19 05:20 Calcium 7.7 mg/dL (8.5-10.1) L 12/17/19 05:20 Corrected Calcium 8.7 mg/dL (8.5-10.1) 12/17/19 05:20 Magnesium 1.7 mg/dL (1.7-2.9) 12/17/19 13:52 Total Bilirubin 0.40 mg/dL (0.2-1.0) 12/17/19 05:20 AST 34 Units/L (15-37) 12/17/19 05:20 ALT 30 Units/L (12-78) 12/17/19 05:20 Alkaline Phosphatase 163 Units/L (46-116) H 12/17/19 05:20 Creatine Kinase 48 Units/L (26-192) 12/17/19 13:52 CK-MB (CK-2) 1.6 ng/mL (0-4.0) 12/17/19 13:52 CK/CKMB % Calc 3.3 % (<4) 12/17/19 13:52 Troponin I 0.06 ng/mL (0-1.5) 12/17/19 13:52 Total Protein 6.8 g/dL (6.4-8.2) 12/17/19 05:20 Albumin 2.8 g/dL (3.4-5.0) L 12/17/19 05:20 Globulin 4.0 g/dL (2.5-4.5) 12/17/19 05:20 Albumin/Globulin Ratio 0.7 Ratio (1.1-2.1) L 12/17/19 05:20 Specimen Type Clean catch urine 12/17/19 00:02 Urine Color Pale yellow (YELLOW) 12/17/19 00:02 Urine Appearance Clear (CLEAR) 12/17/19 00:02 Urine pH 6.0 (5.0 - 8.0) 12/17/19 00:02 Ur Specific [place] 1.010 (1.000-1.030) 12/17/19 00:02 Urine Protein Negative (NEGATIVE) 12/17/19 00:02 Urine Glucose (UA) Negative (NEGATIVE) 12/17/19 00:02 Urine Ketones Negative (NEGATIVE) 12/17/19 00:02 Urine Occult Blood 1+ (NEGATIVE) 12/17/19 00:02 Urine Nitrite Negative (NEGATIVE) 12/17/19 00:02 Urine Bilirubin Negative (NEGATIVE) 12/17/19 00:02 Urine Urobilinogen Normal (NORMAL) 12/17/19 00:02 Ur Leukocyte Esterase 1+ (NEGATIVE) 12/17/19 00:02 Urine RBC 0-2 /HPF (0-3) 12/17/19 00:02 Urine WBC None seen /HPF (0-5) 12/17/19 00:02 Ur Squamous Epith Cells Rare /HPF (NEGATIVE) 12/17/19 00:02 Urine Bacteria Negative /HPF (NEGATIVE) 12/17/19 00:02 Ur Culture Indicated? No/not indicated 12/17/19 00:02 Review of Systems Constitutional: No Symptoms Reported Eyes: No Symptoms Reported ENT: No Symptoms Reported Respiratory: Shortness of Breath and SOB with Excertion Cardiovascular: Palpitations and Orthopnea Genitourinary: No Symptoms Reported Musculoskeletal: Back Pain Skin: No Symptoms Reported Neurological: No Symptoms Reported Physical Exam Vital Signs: Temperature 97.5 F Pulse Rate [Left Brachial] 117 Pulse Rate 120 Respiratory Rate 20 Blood Pressure [Right Arm] 100/75 Blood Pressure [Left Arm] 80/58 Blood Pressure 97/75 O2 Sat by Pulse Oximetry 99 Oriented: Normal Throat: Normal Respiratory: Wheezes Throughout Cardiovascular: Normal and Tachycardia Auscultation: Bowel Sounds: Normal Palpation: Normal Tenderness: Normal Skin: Normal Musculoskeletal: Normal Psychiatric: Normal Mood Description: Calm Affect: Normal Speech Pattern: Clear and Appropriate Assessment/Plan (1) Atrial flutter with rapid ventricular response: Status: Acute (2) Hypotension: Qualifiers: Hypotension type: hypotension due to drug Qualified Code(s): I95.2 - Hypotension due to drugs Status: Acute (3) Abnormal cardiac enzyme level: Status: Acute (4) COPD (chronic obstructive pulmonary disease): Qualifiers: COPD type: COPD with acute exacerbation Qualified Code(s): J44.1 - Chronic obstructive pulmonary disease with (acute) exacerbation Status: Chronic (5) Hypomagnesemia: Status: Acute (6) Hypokalemia: Status: Acute Review H&P Reviewed: Yes Patient was examined?: Yes
[2019-12-17] MEDS: LIPITOR TAB 40 MG PO SCH (20:53)
[2019-12-17] MEDS: DESYREL PO SCH (20:53)
[2019-12-17] MEDS: ABILIFY PO SCH (20:53)
[2019-12-18] MEDS: NORCO 7.5/325 MG TAB PO PRN ×2 (00:25→15:27)
[2019-12-18] MEDS: XOPENEX 1.25 MG/3 ML NEBULE NEB SCH ×5 (01:05→17:24)
[2019-12-18 04:57] LABS: BASOPHILS # (AUTO) 0.1 X10^3/uL (0.0-0.1); BASOPHILS % (AUTO) 0.9 % (0.2-1.0); EOSINOPHILS % (AUTO) 0.7 % (0.9-2.9); HEMATOCRIT 26.5 % (36.0-47.0); HEMOGLOBIN 8.5 g/dL (12.0-16.0); LYMPHOCYTES # (AUTO) 2.6 X10^3/uL (1.3-2.9); LYMPHOCYTES % (AUTO) 34.4 % (21.0-51.0); MEAN CORPUSCULAR HEMOGLOBIN 26.9 pg (27.0-34.0); MEAN CORPUSCULAR HGB CONC 32.2 g/dL (33.0-35.0); MEAN CORPUSCULAR VOLUME 83.5 fL (80.0-100.0); MEAN PLATELET VOLUME 9.1 fL (7.4-11.0); MONOCYTES # (AUTO) 0.5 x10^3/uL (0.3-0.8); MONOCYTES % (AUTO) 7.1 % (0.0-13.0); NEUTROPHILS # (AUTO) 4.2 x10^3/uL (2.2-4.8); NEUTROPHILS % (AUTO) 56.9 % (42.0-75.0); PLATELET COUNT 214 X10^3/uL (150.0-450.0); RED BLOOD COUNT 3.18 X10^6/uL (3.5-5.4); RED CELL DISTRIBUTION WIDTH 16.8 % (11.6-16.5); WHITE BLOOD COUNT 7.4 X10^3/uL (3.6-10.0)
[2019-12-18 05:01] LABS: BLOOD UREA NITROGEN 13 mg/dL (7-18); CALCIUM 7.5 mg/dL (8.5-10.1); CARBON DIOXIDE 27.9 mmol/L (21-32); CHLORIDE 103 mmol/L (98-107); CREATININE 0.74 mg/dL (0.55-1.02); MAGNESIUM 1.4 mg/dL (1.7-2.9); SODIUM 136 mmol/L (136-145); eGFR NON BLACK RACES > 60 (>60)
[2019-12-18] MEDS ORDERED: DEPAKOTE D.R. TAB PO ONE ×3 (05:21→20:41)
[2019-12-18] MEDS: MAGNESIUM SULFATE 1 GRAM/100 mL PREMIX 1 GM/100 ML BAG IV PRN ×3 (05:38→09:25)
[2019-12-18] MEDS: DEPAKOTE D.R. TAB PO SCH ×3 (05:43→21:19)
[2019-12-18] MEDS: LYRICA CAP 50 mg PO SCH ×3 (05:44→21:19)
[2019-12-18] MEDS: ELIQUIS PO SCH ×2 (09:20→21:20)
[2019-12-18] MEDS: LOPRESSOR TAB 25 MG PO SCH ×3 (09:20→21:20)
[2019-12-18] MEDS: PROTONIX TAB 40 MG PO SCH (09:21)
[2019-12-18] MEDS ORDERED: LOPRESSOR TAB 25 MG PO STA (14:31)
[2019-12-18] MEDS ORDERED: LEVSIN/MAALOX/LIDOC VISC PO ONE (17:59)
[2019-12-18] MEDS: LIPITOR TAB 40 MG PO SCH (21:19)
[2019-12-18] MEDS: DESYREL PO SCH (21:21)
[2019-12-18] MEDS: ABILIFY PO SCH (21:33)
[2019-12-19] MEDS: XOPENEX 1.25 MG/3 ML NEBULE NEB SCH ×4 (00:35→17:20)
[2019-12-19 03:07] LABS: ABG BASE EXCESS 4.8 mmol/L (-2.0-2.0)
[2019-12-19 03:09] LABS: ABG HCO3 30.4 mmol/L (22-26)
[2019-12-19 05:04] LABS: BASOPHILS % (AUTO) 0.3 % (0.2-1.0); EOSINOPHILS % (AUTO) 0.7 % (0.9-2.9); HEMATOCRIT 29.6 % (36.0-47.0); HEMOGLOBIN 9.5 g/dL (12.0-16.0); LYMPHOCYTES # (AUTO) 2.6 X10^3/uL (1.3-2.9); LYMPHOCYTES % (AUTO) 41.2 % (21.0-51.0); MEAN CORPUSCULAR HEMOGLOBIN 26.8 pg (27.0-34.0); MEAN CORPUSCULAR VOLUME 83.7 fL (80.0-100.0); MEAN PLATELET VOLUME 8.9 fL (7.4-11.0); MONOCYTES # (AUTO) 0.5 x10^3/uL (0.3-0.8); MONOCYTES % (AUTO) 7.1 % (0.0-13.0); NEUTROPHILS # (AUTO) 3.3 x10^3/uL (2.2-4.8); NEUTROPHILS % (AUTO) 50.7 % (42.0-75.0); PLATELET COUNT 220 X10^3/uL (150.0-450.0); RED BLOOD COUNT 3.53 X10^6/uL (3.5-5.4); RED CELL DISTRIBUTION WIDTH 17.1 % (11.6-16.5); WHITE BLOOD COUNT 6.4 X10^3/uL (3.6-10.0)
[2019-12-19 05:06] LABS: BLOOD UREA NITROGEN 10 mg/dL (7-18); CALCIUM 7.6 mg/dL (8.5-10.1); CARBON DIOXIDE 31.6 mmol/L (21-32); CHLORIDE 100 mmol/L (98-107); CREATININE 0.79 mg/dL (0.55-1.02); MAGNESIUM 1.6 mg/dL (1.7-2.9); SODIUM 135 mmol/L (136-145); eGFR NON BLACK RACES > 60 (>60)
[2019-12-19] MEDS ORDERED: DEPAKOTE D.R. TAB PO ONE ×3 (05:13→20:20)
[2019-12-19] MEDS: DEPAKOTE D.R. TAB PO SCH ×3 (05:16→21:02)
[2019-12-19] MEDS: LYRICA CAP 50 mg PO SCH ×3 (05:16→21:03)
[2019-12-19] MEDS: ELIQUIS PO SCH ×2 (08:15→20:47)
[2019-12-19] MEDS: LOPRESSOR TAB 25 MG PO SCH ×2 (08:15→20:47)
[2019-12-19] MEDS: PROTONIX TAB 40 MG PO SCH (08:16)
[2019-12-19] MEDS: MAGNESIUM SULFATE 1 GRAM/100 mL PREMIX 4 G/400 ML BAG IV SCH ×4 (12:06→16:10)
[2019-12-19] MEDS: NORCO 7.5/325 MG TAB PO PRN ×2 (12:07→21:03)
[2019-12-19] MEDS: ZOFRAN INJ 4 MG VIAL IVP PRN (16:10)
[2019-12-19] MEDS ORDERED: LANOXIN INJ IVP ONE (17:38)
[2019-12-19] MEDS: LANOXIN INJ IVP ONE ×2 (19:30→19:42)
[2019-12-19] MEDS: ABILIFY PO SCH (20:46)
[2019-12-19] MEDS: LIPITOR TAB 40 MG PO SCH (20:47)
[2019-12-19] MEDS: DESYREL PO SCH (20:47)
[2019-12-20] MEDS: XOPENEX 1.25 MG/3 ML NEBULE NEB SCH ×2 (00:24→05:30)
[2019-12-20] MEDS ORDERED: DEPAKOTE D.R. TAB PO ONE (05:01)
[2019-12-20] MEDS: DEPAKOTE D.R. TAB PO SCH (05:19)
[2019-12-20] MEDS: LYRICA CAP 50 mg PO SCH (05:19)
[2019-12-20 05:25] LABS: BASOPHILS % (AUTO) 0.3 % (0.2-1.0); EOSINOPHILS % (AUTO) 0.7 % (0.9-2.9); HEMATOCRIT 29.3 % (36.0-47.0); HEMOGLOBIN 9.4 g/dL (12.0-16.0); LYMPHOCYTES # (AUTO) 2.7 X10^3/uL (1.3-2.9); LYMPHOCYTES % (AUTO) 43.3 % (21.0-51.0); MEAN CORPUSCULAR HEMOGLOBIN 26.4 pg (27.0-34.0); MEAN CORPUSCULAR VOLUME 82.5 fL (80.0-100.0); MEAN PLATELET VOLUME 8.4 fL (7.4-11.0); MONOCYTES # (AUTO) 0.4 x10^3/uL (0.3-0.8); MONOCYTES % (AUTO) 7.1 % (0.0-13.0); NEUTROPHILS % (AUTO) 48.6 % (42.0-75.0); PLATELET COUNT 193 X10^3/uL (150.0-450.0); RED BLOOD COUNT 3.56 X10^6/uL (3.5-5.4); WHITE BLOOD COUNT 6.2 X10^3/uL (3.6-10.0)
[2019-12-20 05:28] LABS: BLOOD UREA NITROGEN 6 mg/dL (7-18); CALCIUM 7.6 mg/dL (8.5-10.1); CARBON DIOXIDE 31.5 mmol/L (21-32); CHLORIDE 99 mmol/L (98-107); CREATININE 0.67 mg/dL (0.55-1.02); MAGNESIUM 1.7 mg/dL (1.7-2.9); SODIUM 137 mmol/L (136-145); eGFR NON BLACK RACES > 60 (>60)
[2019-12-20 08:05] VITALS: BP 99/54
[2019-12-20] MEDS: PROTONIX TAB 40 MG PO SCH (08:31)
[2019-12-20] MEDS: ELIQUIS PO SCH (08:31)
[2019-12-20] MEDS: LOPRESSOR TAB 25 MG PO SCH (08:31)
[2019-12-20] MEDS: NORCO 7.5/325 MG TAB PO PRN (08:32)
--- NOTE | 2019-12-20 08:39 | W.DIS.FURT ---
Summary of Discharge Discharge Summary of Date Date of Exam: 12/20/19 Admission Date Date of Admission: 12/16/19 Admission Diagnosis Hospital Course: Ms. Garcia is a 59y/o female with a PMH of atrial fibrillation, CAD, chronic back pain presented with palpitations. She has had frequent visits to the ED for elevated HR due to afib RVR or SVT and usually resolves with adenosine or metoprolol. Patient presented with elevated troponin in early november and was transferred for a cath. She had a LHC done which did not show severe disease requiring stenting. She had an ablation done in 2014 for atrial flutter. She sees cardiology in [place] but has not followed up since last month after her cath. Echo showed EF 65-70% with severe pulmonary HTN. She denies any recent changes in her medications. She also has COPD on home oxygen. Denies chest pain or tightness. Reports nausea, no vomiting or diarrhea. In the ER, HR noted to be in 120's, Sinus tach on EKG, given metoprolol tartrate 12.5 mg PO. Patient's BP dropped into the 90s. CXR: persistent pulmonary congestion, no effusions or infiltrate, no change from prev CXR Troponin 0.10 , 0.12, 0.08, low magnesium and potassium Patient was initially started on metoprolol 12.5 mg BID but continued to have HR in 110-120. Metoprolol was gradually increased to 50 mg BID and Digoxin was added as patient's HR continued to stay above 100. HR finally stabilized in 80- 90s, denied symptoms. Patient was stable for discharge. She will need to follow up with PCP and cardiology as scheduled. Vital Signs: Vital Signs (72 hours) 12/17/19 08:44 12/17/19 09:44 12/17/19 11:45 Temperature Pulse Rate 124 H Pulse Rate [Left Brachial] Respiratory Rate 18 18 Blood Pressure [Left Arm] Blood Pressure [Right Arm] O2 Sat by Pulse Oximetry 97 12/17/19 12:00 12/17/19 13:29 12/17/19 13:55 Temperature 97.7 F Pulse Rate Pulse Rate [Left Brachial] 119 H 119 H 121 H Respiratory Rate 20 22 20 Blood Pressure [Left Arm] 117/79 80/58 Blood Pressure [Right Arm] 80/58 90/50 O2 Sat by Pulse Oximetry 99 12/17/19 15:20 12/17/19 16:00 12/17/19 17:30 Temperature 97.5 F L Pulse Rate 120 H Pulse Rate [Left Brachial] 106 H 117 H Respiratory Rate 20 Blood Pressure [Left Arm] Blood Pressure [Right Arm] 83/67 100/75 O2 Sat by Pulse Oximetry 12/17/19 20:00 12/18/19 00:00 12/18/19 00:25 Temperature 97.8 F 97.4 F L Pulse Rate Pulse Rate [Left Brachial] 114 H 111 H Respiratory Rate 22 20 20 Blood Pressure [Left Arm] 88/69 89/69 Blood Pressure [Right Arm] O2 Sat by Pulse Oximetry 98 95 12/18/19 01:05 12/18/19 01:25 12/18/19 04:00 Temperature 98.4 F Pulse Rate 109 H Pulse Rate [Left Brachial] 117 H Respiratory Rate 20 20 Blood Pressure [Left Arm] 90/69 Blood Pressure [Right Arm] O2 Sat by Pulse Oximetry 95 95 12/18/19 07:37 12/18/19 12:00 12/18/19 15:27 Temperature 97.5 F L 97.2 F L Pulse Rate Pulse Rate [Left Brachial] 81 116 H Respiratory Rate 18 18 20 Blood Pressure [Left Arm] 103/69 152/68 Blood Pressure [Right Arm] O2 Sat by Pulse Oximetry 100 100 12/18/19 16:00 12/18/19 16:27 12/18/19 18:10 Temperature 98.4 F Pulse Rate Pulse Rate [Left Brachial] 118 H Respiratory Rate 20 20 18 Blood Pressure [Left Arm] 152/68 Blood Pressure [Right Arm] O2 Sat by Pulse Oximetry 96 12/18/19 19:10 12/18/19 20:00 12/19/19 00:00 Temperature 99.0 F 98.1 F Pulse Rate Pulse Rate [Left Brachial] 117 H 115 H Respiratory Rate 18 20 22 Blood Pressure [Left Arm] 121/82 110/71 Blood Pressure [Right Arm] O2 Sat by Pulse Oximetry 100 95 12/19/19 00:38 12/19/19 04:00 12/19/19 08:00 Temperature 98.7 F 98.8 F Pulse Rate 113 H Pulse Rate [Left Brachial] 115 H 116 H Respiratory Rate 20 18 Blood Pressure [Left Arm] 114/77 105/70 Blood Pressure [Right Arm] O2 Sat by Pulse Oximetry 95 94 L 99 12/19/19 12:00 12/19/19 12:05 12/19/19 12:07 Temperature 98.1 F Pulse Rate 114 H Pulse Rate [Left Brachial] 122 H Respiratory Rate 24 24 Blood Pressure [Left Arm] 113/94 Blood Pressure [Right Arm] O2 Sat by Pulse Oximetry 98 100 12/19/19 13:07 12/19/19 16:00 12/19/19 17:20 Temperature 97.9 F Pulse Rate 114 H Pulse Rate [Left Brachial] 108 H Respiratory Rate 24 20 Blood Pressure [Left Arm] 110/86 Blood Pressure [Right Arm] O2 Sat by Pulse Oximetry 100 99 12/19/19 17:58 12/19/19 19:30 12/19/19 20:00 Temperature 97.5 F L Pulse Rate 112 H 115 H Pulse Rate [Left Brachial] 98 H Respiratory Rate 24 Blood Pressure [Left Arm] 137/84 Blood Pressure [Right Arm] O2 Sat by Pulse Oximetry 92 L 12/19/19 21:03 12/19/19 22:03 12/20/19 00:00 Temperature 97.6 F Pulse Rate Pulse Rate [Left Brachial] 112 H Respiratory Rate 24 24 20 Blood Pressure [Left Arm] 123/76 Blood Pressure [Right Arm] O2 Sat by Pulse Oximetry 97 12/20/19 04:00 12/20/19 05:30 12/20/19 08:00 Temperature 97.7 F 97.8 F Pulse Rate 78 Pulse Rate [Left Brachial] 72 86 Respiratory Rate 11 L 20 Blood Pressure [Left Arm] 103/68 99/54 Blood Pressure [Right Arm] O2 Sat by Pulse Oximetry 100 94 L 100 12/20/19 08:31 12/20/19 08:32 Temperature Pulse Rate 92 H Pulse Rate [Left Brachial] Respiratory Rate 24 Blood Pressure [Left Arm] Blood Pressure [Right Arm] O2 Sat by Pulse Oximetry Labs: Laboratory Last Values WBC 6.2 X10^3/uL (3.6-10.0) 12/20/19 05:00 RBC 3.56 X10^6/uL (3.5-5.4) 12/20/19 05:00 Hgb 9.4 g/dL (12.0-16.0) L 12/20/19 05:00 Hct 29.3 % (36.0-47.0) L 12/20/19 05:00 MCV 82.5 fL (80.0-100.0) 12/20/19 05:00 MCH 26.4 pg (27.0-34.0) L 12/20/19 05:00 MCHC 32.0 g/dL (33.0-35.0) L 12/20/19 05:00 RDW 17.0 % (11.6-16.5) H 12/20/19 05:00 Plt Count 193 X10^3/uL (150.0-450.0) 12/20/19 05:00 MPV 8.4 fL (7.4-11.0) 12/20/19 05:00 Neut % (Auto) 48.6 % (42.0-75.0) 12/20/19 05:00 Lymph % (Auto) 43.3 % (21.0-51.0) 12/20/19 05:00 [place] % (Auto) 7.1 % (0.0-13.0) 12/20/19 05:00 Eos % (Auto) 0.7 % (0.9-2.9) L 12/20/19 05:00 Baso % (Auto) 0.3 % (0.2-1.0) 12/20/19 05:00 Neut # (Auto) 3.0 x10^3/uL (2.2-4.8) 12/20/19 05:00 Lymph # (Auto) 2.7 X10^3/uL (1.3-2.9) 12/20/19 05:00 [place] # (Auto) 0.4 x10^3/uL (0.3-0.8) 12/20/19 05:00 Eos # (Auto) 0.0 x10^3/uL (0.0-0.2) 12/20/19 05:00 Baso # (Auto) 0.0 X10^3/uL (0.0-0.1) 12/20/19 05:00 Absolute Nucleated RBC 0.1 /100WBC 12/20/19 05:00 PT 15.8 SECONDS (11.8-14.3) 12/17/19 05:20 INR Target Range - 12/17/19 05:20 INR 1.30 (0.8-1.3) 12/17/19 05:20 APTT 33.2 SECONDS (22.9-36.5) 12/17/19 05:20 PTT Comment - 12/17/19 05:20 Sample Site Lbra 12/19/19 03:01 ABG pH 7.410 (7.35-7.45) 12/19/19 03:01 ABG pCO2 48.0 mmHg (35.0-45.0) H 12/19/19 03:01 ABG pO2 154.0 mmHg (80.0-100.0) H 12/19/19 03:01 ABG HCO3 30.4 mmol/L (22-26) H* 12/19/19 03:01 ABG O2 Saturation 99.0 % (90-100) 12/19/19 03:01 ABG Base Excess 4.8 mmol/L (-2.0-2.0) H 12/19/19 03:01 [place] Test Na 12/19/19 03:01 A-a Gradient 14.0 mmHg 12/19/19 03:01 FiO2 32.0 12/19/19 03:01 Blood Gas Comments Davian abg well-mtf 12/19/19 03:01 Sodium 137 mmol/L (136-145) 12/20/19 05:00 Corrected Sodium TNP 12/20/19 05:00 Potassium 4.2 mmol/L (3.5-5.1) 12/20/19 05:00 Chloride 99 mmol/L (98-107) 12/20/19 05:00 Carbon Dioxide 31.5 mmol/L (21-32) 12/20/19 05:00 BUN 6 mg/dL (7-18) L 12/20/19 05:00 Creatinine 0.67 mg/dL (0.55-1.02) 12/20/19 05:00 Est GFR (MDRD) Af Amer > 60 (>60) 12/20/19 05:00 Est GFR (MDRD) Non-Af > 60 (>60) 12/20/19 05:00 Glucose 69 mg/dL (65-99) 12/20/19 05:00 Calcium 7.6 mg/dL (8.5-10.1) L 12/20/19 05:00 Corrected Calcium 8.7 mg/dL (8.5-10.1) 12/17/19 05:20 Magnesium 1.7 mg/dL (1.7-2.9) 12/20/19 05:00 Total Bilirubin 0.40 mg/dL (0.2-1.0) 12/17/19 05:20 AST 34 Units/L (15-37) 12/17/19 05:20 ALT 30 Units/L (12-78) 12/17/19 05:20 Alkaline Phosphatase 163 Units/L (46-116) H 12/17/19 05:20 Creatine Kinase 48 Units/L (26-192) 12/17/19 13:52 CK-MB (CK-2) 1.6 ng/mL (0-4.0) 12/17/19 13:52 CK/CKMB % Calc 3.3 % (<4) 12/17/19 13:52 Troponin I 0.06 ng/mL (0-1.5) 12/17/19 13:52 Total Protein 6.8 g/dL (6.4-8.2) 12/17/19 05:20 Albumin 2.8 g/dL (3.4-5.0) L 12/17/19 05:20 Globulin 4.0 g/dL (2.5-4.5) 12/17/19 05:20 Albumin/Globulin Ratio 0.7 Ratio (1.1-2.1) L 12/17/19 05:20 Specimen Type Clean catch urine 12/17/19 00:02 Urine Color Pale yellow (YELLOW) 12/17/19 00:02 Urine Appearance Clear (CLEAR) 12/17/19 00:02 Urine pH 6.0 (5.0 - 8.0) 12/17/19 00:02 Ur Specific [place] 1.010 (1.000-1.030) 12/17/19 00:02 Urine Protein Negative (NEGATIVE) 12/17/19 00:02 Urine Glucose (UA) Negative (NEGATIVE) 12/17/19 00:02 Urine Ketones Negative (NEGATIVE) 12/17/19 00:02 Urine Occult Blood 1+ (NEGATIVE) 12/17/19 00:02 Urine Nitrite Negative (NEGATIVE) 12/17/19 00:02 Urine Bilirubin Negative (NEGATIVE) 12/17/19 00:02 Urine Urobilinogen Normal (NORMAL) 12/17/19 00:02 Ur Leukocyte Esterase 1+ (NEGATIVE) 12/17/19 00:02 Urine RBC 0-2 /HPF (0-3) 12/17/19 00:02 Urine WBC None seen /HPF (0-5) 12/17/19 00:02 Ur Squamous Epith Cells Rare /HPF (NEGATIVE) 12/17/19 00:02 Urine Bacteria Negative /HPF (NEGATIVE) 12/17/19 00:02 Ur Culture Indicated? No/not indicated 12/17/19 00:02 Reason For Visit: ABNORMAL CARDIAC ENZYME,TACHYCARDIA/SVT Discharge Date Discharge Date: 12/20/19 Discharge Diagnosis All Active Problems (Updated 12/26/19 @ 00:17 by COLIN HILL) Chest pain (Acute) Cystitis (Acute) Atrial fibrillation with rapid ventricular response (Acute) SVT (supraventricular tachycardia) (Acute) Dependent edema (Acute) Chest pain in adult (Acute) Hypokalemia (Acute) Hypomagnesemia (Acute) Hypotension (Acute) Atrial flutter with rapid ventricular response (Acute) Abnormal cardiac enzyme level (Acute) Tachycardia (Acute) History of supraventricular tachycardia (Acute) Renal mass, right (Chronic) Accelerated hypertension (Chronic) COPD (chronic obstructive pulmonary disease) (Chronic) Long-term (current) use of anticoagulants, INR goal 2.0-3.0 (Chronic) Plan of Treatment: Continue with present treatment and follow up plan. Pt is to keep follow up appointment as instructed and take medications as ordered. Discharge Medications Discharge Medications: adhesive tape Allergy (Verified 11/28/19 19:39) CONTINUE taking the following medications trazodone 150 mg PO HS 12/16/19 [History] New Prescriptions digoxin 0.25 mg PO DAILY 30 Days #30 tab 12/20/19 [Rx] magnesium hydroxide 400 mg PO DAILY 14 Days #14 tab 12/20/19 [Rx] metoprolol tartrate 50 mg PO BID 30 Days #60 tab 12/20/19 [Rx] Follow up and Referral Follow Up: 1 Week (PCP) 1 Week (Cardiology) Discharge Disposition Discharge Disposition: Home S Discharge Condition: Stable
[2019-12-20] MEDS ORDERED: LANOXIN PO SCH (09:00)
== END 2019-12-20 12:10 | disposition home or self-care (01) | DRG 309 ==
LOC: MED/SURG 07:58 → ER 07:58 → OBSVTOIN 16:10 → MED/SURG 17:09
PROVIDERS: ADMIT Internal Medicine; ATTEND Internal Medicine
DX: R94.31 Abnormal electrocardiogram [ECG] [EKG]; Z79.01 Long term (current) use of anticoagulants; I48.92 Unspecified atrial flutter; I25.10 Atherosclerotic heart disease of native coronary artery without angina pectoris; J44.1 Chronic obstructive pulmonary disease with (acute) exacerbation; Z99.81 Dependence on supplemental oxygen; R07.89 Other chest pain; I95.2 Hypotension due to drugs; E78.2 Mixed hyperlipidemia; E87.6 Hypokalemia; E83.42 Hypomagnesemia; R00.0 Tachycardia, unspecified; R74.8 Abnormal levels of other serum enzymes; K21.9 Gastro-esophageal reflux disease without esophagitis; I10 Essential (primary) hypertension; Z86.79 Personal history of other diseases of the circulatory system

== ENCOUNTER 2020-01-09 13:48 | Observation (INO) ==
[2020-01-09 14:06] VITALS: BMI 28.0
[2020-01-09] MEDS ORDERED: MORPHINE SULFATE INJ 2 MG INJ ONE ×2 (14:24→19:14)
[2020-01-09] MEDS ORDERED: MORPHINE SULFATE INJ 2 MG INJ IV ONE (14:24)
[2020-01-09 14:35] LABS: BASOPHILS # (AUTO) 0.1 X10^3/uL (0.0-0.1); BASOPHILS % (AUTO) 1.2 % (0.2-1.0); EOSINOPHILS % (AUTO) 0.2 % (0.9-2.9); HEMATOCRIT 34.9 % (36.0-47.0); HEMOGLOBIN 10.7 g/dL (12.0-16.0); LYMPHOCYTES # (AUTO) 1.9 X10^3/uL (1.3-2.9); LYMPHOCYTES % (AUTO) 30.6 % (21.0-51.0); MEAN CORPUSCULAR HEMOGLOBIN 24.5 pg (27.0-34.0); MEAN CORPUSCULAR HGB CONC 30.8 g/dL (33.0-35.0); MEAN CORPUSCULAR VOLUME 79.5 fL (80.0-100.0); MEAN PLATELET VOLUME 8.7 fL (7.4-11.0); MONOCYTES # (AUTO) 0.6 x10^3/uL (0.3-0.8); MONOCYTES % (AUTO) 9.4 % (0.0-13.0); NEUTROPHILS # (AUTO) 3.7 x10^3/uL (2.2-4.8); NEUTROPHILS % (AUTO) 58.6 % (42.0-75.0); PLATELET COUNT 301 X10^3/uL (150.0-450.0); RED BLOOD COUNT 4.38 X10^6/uL (3.5-5.4); RED CELL DISTRIBUTION WIDTH 17.8 % (11.6-16.5); WHITE BLOOD COUNT 6.4 X10^3/uL (3.6-10.0)
--- NOTE | 2020-01-09 14:43 | RAD ---
HISTORYSOB, LE EDEMASTUDYCHEST, 1 VIEWCOMPARISONApril 2019FINDINGSThe trachea is midline. The cardiac silhouette is stable. Lungs demonstrate persistent opacity in the right upper lobe slightly improved to prior. Continued follow-up is recommended. The bony thorax is unremarkable.IMPRESSIONSlightly improving right upper lobe opacity for which continued follow-up is recommended.Electronically signed by: TEQUILA CAMPOS (January 09, 2020 14:42:28)
[2020-01-09 14:53] LABS: BLOOD UREA NITROGEN 16 mg/dL (7-18); CALCIUM 7.8 mg/dL (8.5-10.1); CARBON DIOXIDE 34.5 mmol/L (21-32); CHLORIDE 98 mmol/L (98-107); COR NA(FOR HYPERGLY) 138 mmol/L (136-145); CREATININE 0.95 mg/dL (0.55-1.02); SODIUM 138 mmol/L (136-145); TROPONIN I 0.04 ng/mL (0-1.5); eGFR NON BLACK RACES > 60 (>60)
[2020-01-09 14:57] LABS: HYPOCHROMASIA SLIGHT; PLATELET MORPHOLOGY COMMENT NORMAL (NORMAL)
[2020-01-09] MEDS ORDERED: LASIX IVP ONE (15:06)
[2020-01-09 15:08] LABS: ALANINE AMINOTRANSFERASE 20 Units/L (12-78); ALBUMIN 2.6 g/dL (3.4-5.0); ALKALINE PHOSPHATASE 130 Units/L (46-116); ASPARTATE AMINO TRANSFERASE 32 Units/L (15-37); CKMB % 4.2 % (<4); COR CA(FOR HYPOALB) 8.9 mg/dL (8.5-10.1); CREATINE KINASE 45 Units/L (26-192); CREATINE KINASE MB 1.9 ng/mL (0-4.0); TOTAL PROTEIN 6.6 g/dL (6.4-8.2)
[2020-01-09 15:14] LABS: BILIRUBIN,URINE NEGATIVE (NEGATIVE); BLOOD/HEMOGLOBIN,URINE 2+ (NEGATIVE); GLUCOSE, URINE NEGATIVE (NEGATIVE); KETONES,URINE NEGATIVE (NEGATIVE); LEUKOCYTE ESTERASE ,URINE NEGATIVE (NEGATIVE); NITRITES,URINE NEGATIVE (NEGATIVE); PROTEIN,URINE 2+ (NEGATIVE); UROBILINOGEN,URINE 2+ (NORMAL)
[2020-01-09] MEDS: LASIX IV SCH (15:22)
--- NOTE | 2020-01-09 15:23 | DR.EXTPAIN ---
HPI Time seen Time Seen by Provider: 01/09/20 14:10 PCP Primary Care Physician: dr yao in [facility] HPI Comment HPI Comment: Brought in by ems due to worsening le swelling and sob over the past two weeks which has not responded to Lasix 60 bid as below; occasional cough and wheezing but no fever, chills, n/v/d. Complaint/Symptoms Chief Complaint:: pt stated her legs has been swelling for 2 weeks, and the right leg has been draining liquid. pt stated she has been sob for awhile. she called her pcp and he increased her lasix. Self Treatment fo Chief Complaint: she was told to double her lasix COVID-19 Coronavirus risk:travel/contact w/high risk person: No Has patient experienced Coronavirus symptoms: Yes Coronavirus symptoms experienced: Shortness of Breath Source History Provided: Patient and EMS Mode of arrival Mode of Arrival: EMS Timing Onset of Chief Complaint: 12/26/19 PMH PMH Past Medical History: Yes Past Medical History: Anxiety, CHF, COPD, Dyslipidemia, GERD, Hypertension, [place] and SVT Past Surgical History: Yes Surgical History: Appendectomy, Cholecystectomy, Ortho Surgery and Tonsillectomy Family History History of Family Medical Conditions: Yes Family Medical History: Diabetes Mellitus, Coronary Artery Disease and Hypertension Social History Does patient currently use any type of tobacco product: Yes Have you used tobacco products in the last 12 months: Yes Type of Tobacco Use: Cigarettes How many years tobacco product used: 30 Does any household member use tobacco: Yes Alcohol Use: None Do you use any recreational Drugs:: No Lives With: Family Lives Where: Home Travel Risk Coronavirus risk:travel/contact w/high risk person: No Has patient experienced Coronavirus symptoms: Yes Coronavirus symptoms experienced: Shortness of Breath Infectious screening In the last 2 months have you had wt loss of >10#?: NO Have you had fever, night sweats or hemotysis?: No Have you traveled outside the country in the last 6 months?: No Isolation: Droplet ROS Review of Systems Constitutional: See HPI, Malaise and Fatigue Eyes: No Symptoms Reported ENTM: No Symptoms Reported Respiratoy: See HPI Cardiovascular: No Symptoms Reported Gastrointestinal/Abdominal: No Symptoms Reported Neurological: Weakness Musculoskeletal: Joint Pain ("all over") and Muscle Pain Hematologic/Lymphatic: No Symptoms Reported Psychiatric: No Symptoms Reported PE Vital Signs Vitals: Temperature 98.6 F Pulse Rate 61 Respiratory Rate 16 Blood Pressure [Right Arm] 140/66 Blood Pressure [Left Arm] 99/54 Blood Pressure [Right Arm] 130/59 Blood Pressure 133/95 O2 Sat by Pulse Oximetry 98 General Limitations: No Limitations General Appearance: Alert and In No Apparent Distress Head Head Exam: Normal Inspection, Atraumatic and Normocephalic Eyes Eye exam: Normal Appearance Neck Neck Exam: Normal Inspection, Full ROM and Trachea Midline Chest Chest Inspection: Normal Inspection and Symmetric Chest Wall Rise Respiratory Respiratory Exam: Bilateral: Wheezing and Bilateral: Decreased Breath Sounds Cardiovascular Cardiovascular Exam: Irregular Rhythm Abdominal Exam Abdominal Exam: Normal Inspection, Normal Bowel Sounds and Soft Extremities Extremities Exam: Edema (2-3+ pitting, rt greater than lt with rt weeping) COURSE Reevaluation 1st: Improved (less sob; now c/o "my heels are burning") Consultation Call Returned: 17:30 (Dr Manzano accepts pt.) ROR Labs Reviewed Laboratory Results Reviewed?: Yes Result Diagrams: 01/09/20 14:23 01/09/20 14:23 Laboratory: WBC 6.4 X10^3/uL (3.6-10.0) 01/09/20 14:23 RBC 4.38 X10^6/uL (3.5-5.4) 01/09/20 14:23 Hgb 10.7 g/dL (12.0-16.0) L 01/09/20 14:23 Hct 34.9 % (36.0-47.0) L 01/09/20 14:23 MCV 79.5 fL (80.0-100.0) L 01/09/20 14:23 MCH 24.5 pg (27.0-34.0) L 01/09/20 14:23 MCHC 30.8 g/dL (33.0-35.0) L 01/09/20 14:23 RDW 17.8 % (11.6-16.5) H 01/09/20 14:23 Plt Count 301 X10^3/uL (150.0-450.0) 01/09/20 14:23 Plt Count Comment Adequate (ADEQUATE) 01/09/20 14:23 MPV 8.7 fL (7.4-11.0) 01/09/20 14:23 Neut % (Auto) 58.6 % (42.0-75.0) 01/09/20 14:23 Lymph % (Auto) 30.6 % (21.0-51.0) 01/09/20 14:23 [place] % (Auto) 9.4 % (0.0-13.0) 01/09/20 14:23 Eos % (Auto) 0.2 % (0.9-2.9) L 01/09/20 14:23 Baso % (Auto) 1.2 % (0.2-1.0) H 01/09/20 14:23 Neut # (Auto) 3.7 x10^3/uL (2.2-4.8) 01/09/20 14:23 Lymph # (Auto) 1.9 X10^3/uL (1.3-2.9) 01/09/20 14:23 [place] # (Auto) 0.6 x10^3/uL (0.3-0.8) 01/09/20 14:23 Eos # (Auto) 0.0 x10^3/uL (0.0-0.2) 01/09/20 14:23 Baso # (Auto) 0.1 X10^3/uL (0.0-0.1) 01/09/20 14:23 Absolute Nucleated RBC 0.2 /100WBC 01/09/20 14:23 Plt Morphology Comment Normal (NORMAL) 01/09/20 14:23 RBC Morphology Abnormal (NORMAL) A 01/09/20 14:23 Hypochromasia Slight A 01/09/20 14:23 Sodium 138 mmol/L (136-145) 01/09/20 14:23 Corrected Sodium 138 mmol/L (136-145) 01/09/20 14:23 Potassium 3.8 mmol/L (3.5-5.1) 01/09/20 14:23 Chloride 98 mmol/L (98-107) 01/09/20 14:23 Carbon Dioxide 34.5 mmol/L (21-32) H 01/09/20 14:23 BUN 16 mg/dL (7-18) 01/09/20 14:23 Creatinine 0.95 mg/dL (0.55-1.02) 01/09/20 14:23 Est GFR (MDRD) Af Amer > 60 (>60) 01/09/20 14:23 Est GFR (MDRD) Non-Af > 60 (>60) 01/09/20 14:23 Glucose 120 mg/dL (65-99) H 01/09/20 14:23 Calcium 7.8 mg/dL (8.5-10.1) L 01/09/20 14:23 Corrected Calcium 8.9 mg/dL (8.5-10.1) 01/09/20 14:23 Total Bilirubin 0.50 mg/dL (0.2-1.0) 01/09/20 14:23 AST 32 Units/L (15-37) 01/09/20 14:23 ALT 20 Units/L (12-78) 01/09/20 14:23 Alkaline Phosphatase 130 Units/L (46-116) H 01/09/20 14:23 Creatine Kinase 45 Units/L (26-192) 01/09/20 14:23 CK-MB (CK-2) 1.9 ng/mL (0-4.0) 01/09/20 14:23 CK/CKMB % Calc 4.2 % (<4) 01/09/20 14:23 Troponin I 0.04 ng/mL (0-1.5) 01/09/20 14:23 B-Natriuretic Peptide 642 pg/mL (0-79) H* 01/09/20 14:23 Total Protein 6.6 g/dL (6.4-8.2) 01/09/20 14:23 Albumin 2.6 g/dL (3.4-5.0) L 01/09/20 14:23 Globulin 4.0 g/dL (2.5-4.5) 01/09/20 14:23 Albumin/Globulin Ratio 0.7 Ratio (1.1-2.1) L 01/09/20 14:23 Specimen Type Catherized urine 01/09/20 14:55 Urine Color Yellow (YELLOW) 01/09/20 14:55 Urine Appearance Clear (CLEAR) 01/09/20 14:55 Urine pH 6.0 (5.0 - 8.0) 01/09/20 14:55 Ur Specific [place] 1.020 (1.000-1.030) 01/09/20 14:55 Urine Protein 2+ (NEGATIVE) 01/09/20 14:55 Urine Glucose (UA) Negative (NEGATIVE) 01/09/20 14:55 Urine Ketones Negative (NEGATIVE) 01/09/20 14:55 Urine Occult Blood 2+ (NEGATIVE) 01/09/20 14:55 Urine Nitrite Negative (NEGATIVE) 01/09/20 14:55 Urine Bilirubin Negative (NEGATIVE) 01/09/20 14:55 Urine Urobilinogen 2+ (NORMAL) 01/09/20 14:55 Ur Leukocyte Esterase Negative (NEGATIVE) 01/09/20 14:55 Urine RBC 3-5 /HPF (0-3) A 01/09/20 14:55 Urine WBC 0-2 /HPF (0-5) 01/09/20 14:55 Ur Squamous Epith Cells Rare /HPF (NEGATIVE) 01/09/20 14:55 Urine Bacteria Negative /HPF (NEGATIVE) 01/09/20 14:55 Hyaline Casts Few /LPF (NEGATIVE) 01/09/20 14:55 Urine Mucus Few /HPF (NEGATIVE) 01/09/20 14:55 Ur Culture Indicated? No/not indicated 01/09/20 14:55 Opioid Opioid Risk Tool Family Hx of Substance Abuse: Alcohol Personal Hx of Substance Abuse: Prescription Drugs Age ([place] box if 16-45): No History of Preadolescent Sexual Abuse: No Psychological Disease: Bipolar Total: 0 Total Score Risk Category: Low Risk Copyright: [employer] predicting aberrant behaviors Diagnosis Discharge Problem: Dependent edema, Essential hypertension CHF exacerbation Qualifiers: Heart failure type: unspecified Qualified Code(s): I50.9 - Heart failure, unspecified Dyspnea Qualifiers: Dyspnea type: shortness of breath Qualified Code(s): R06.02 - Shortness of breath Instructions Forms: Excuse From Work Precautions for COVID19 Patient Portal Social Distancing
[2020-01-09 15:25] LABS: COLOR,URINE YELLOW (YELLOW)
[2020-01-09 15:26] LABS: APPEARANCE,URINE CLEAR (CLEAR); BACTERIA,URINE NEGATIVE /HPF (NEGATIVE); HYALINE CASTS, URINE FEW /LPF (NEGATIVE); MUCUS,URINE FEW /HPF (NEGATIVE); SQUAMOUS EPITHELIAL CELL,UR RARE /HPF (NEGATIVE)
--- NOTE | 2020-01-09 17:04 | CT ---
CHEST WITH CONIndication: Persistent right upper lobe opacityTechnique: Helical CT images of the chest were obtained with IV contrast. Reformatted images in the coronal and sagittal planes were also generated for review.Comparison: NoneFindings: The heart is mildly enlarged without significant pericardial effusion. Mild coronary atherosclerotic disease and moderate annular calcification of the mitral valve noted. The thoracic aorta and proximal great vessels are minimally calcified without aneurysm. Although not optimized for detection of PTE, no central or large segmental pulmonary arterial filling defects are identified. There is prominence of the central pulmonary arteries, suggestive for underlying pulmonary arterial hypertension. The central airways are patent. There are shotty mediastinal and prevascular lymph nodes, none pathologically enlarged.Evaluation of the lungs demonstrate scattered areas of linear parenchymal scarring versus subsegmental atelectasis throughout the right upper lobe, bilateral lower lobes and lingula. The lungs are otherwise clear without focal consolidation. No pleural effusion or pneumothorax.Limited images through the upper abdomen demonstrate previous cholecystectomy and partially visualized right renal cyst. Degenerative changes throughout the spine and imaged shoulders noted. No acute osseous abnormality.Impression:1. Linear parenchymal scarring versus subsegmental atelectasis of the bilateral lungs as above. No evidence of acute airspace disease.2. Mild cardiomegaly, mild CAD, findings suggestive for PAH and additional chronic findings as above.Electronically signed by: TOI ANDERSON (January 09, 2020 17:03:11)
[2020-01-09] MEDS ORDERED: APRESOLINE INJ 20 MG VIAL IVP PRN (17:34)
[2020-01-09] MEDS: MORPHINE SULFATE INJ 2 MG INJ IVP PRN (19:25)
[2020-01-09] MEDS ORDERED: AMBIEN PO PRN (22:42)
[2020-01-10 06:55] LABS: BASOPHILS # (AUTO) 0.1 X10^3/uL (0.0-0.1); BASOPHILS % (AUTO) 0.6 % (0.2-1.0); EOSINOPHILS % (AUTO) 0.2 % (0.9-2.9); HEMATOCRIT 35.2 % (36.0-47.0); HEMOGLOBIN 10.9 g/dL (12.0-16.0); LYMPHOCYTES # (AUTO) 2.2 X10^3/uL (1.3-2.9); LYMPHOCYTES % (AUTO) 23.3 % (21.0-51.0); MEAN CORPUSCULAR HEMOGLOBIN 24.5 pg (27.0-34.0); MEAN CORPUSCULAR HGB CONC 30.9 g/dL (33.0-35.0); MEAN CORPUSCULAR VOLUME 79.4 fL (80.0-100.0); MEAN PLATELET VOLUME 8.9 fL (7.4-11.0); MONOCYTES # (AUTO) 1.1 x10^3/uL (0.3-0.8); MONOCYTES % (AUTO) 11.5 % (0.0-13.0); NEUTROPHILS # (AUTO) 6.2 x10^3/uL (2.2-4.8); NEUTROPHILS % (AUTO) 64.4 % (42.0-75.0); PLATELET COUNT 312 X10^3/uL (150.0-450.0); RED BLOOD COUNT 4.44 X10^6/uL (3.5-5.4); RED CELL DISTRIBUTION WIDTH 18.1 % (11.6-16.5); WHITE BLOOD COUNT 9.6 X10^3/uL (3.6-10.0)
[2020-01-10 07:12] LABS: ALANINE AMINOTRANSFERASE 19 Units/L (12-78); ALBUMIN 2.6 g/dL (3.4-5.0); ALKALINE PHOSPHATASE 140 Units/L (46-116); ASPARTATE AMINO TRANSFERASE 34 Units/L (15-37); BLOOD UREA NITROGEN 13 mg/dL (7-18); CALCIUM 7.8 mg/dL (8.5-10.1); CARBON DIOXIDE 38.7 mmol/L (21-32); CHLORIDE 99 mmol/L (98-107); COR CA(FOR HYPOALB) 8.9 mg/dL (8.5-10.1); CREATININE 0.82 mg/dL (0.55-1.02); SODIUM 140 mmol/L (136-145); TOTAL PROTEIN 6.7 g/dL (6.4-8.2); eGFR NON BLACK RACES > 60 (>60)
[2020-01-10 07:35] LABS: PLATELET MORPHOLOGY COMMENT NORMAL (NORMAL)
[2020-01-10] MEDS: MORPHINE SULFATE INJ 2 MG INJ IVP PRN (07:59)
[2020-01-10] MEDS: LASIX IV SCH (07:59)
--- NOTE | 2020-01-10 08:01 | RAD ---
HISTORYSOBSTUDYCHEST, 1 VIEWCOMPARISONPortable chest January 09, 2020.FINDINGSThe trachea is midline. The cardiac silhouette is mildly enlarged but stable.. The lungs are clear without focal infiltrate or effusion. Linear atelectasis is seen in both midlung arias without change from yesterday's study. The bony thorax is unremarkable.IMPRESSIONLinear infiltrates right upper and left midlung film most likely atelectasis. This is unchanged from Jan 09 2020 chest filmElectronically signed by: ROBERT QUAN (January 10, 2020 07:59:44)
[2020-01-10] MEDS ORDERED: LOVENOX INJ 40 MG SYR SC SCH (09:00)
[2020-01-10] MEDS ORDERED: LASIX IVP SCH (09:00)
[2020-01-10 11:27] VITALS: BP 138/94
--- NOTE | 2020-01-21 08:56 | DR.CARTERS ---
Short Stay Summary - Admission Date Date of Admission: 01/09/20 - Discharge Date Discharge Date: 01/10/20 - Admission Diagnoses (1) CHF exacerbation Status: Acute (2) Essential hypertension Status: Acute (3) Dyspnea Status: Acute (4) Exposure to COVID-19 virus Status: Acute (5) Hypocalcemia Status: Acute - Hospital Course Hospital Course: IS A 59 YEAR OLD FEMALE WHO IS A PATIENT OF IN [place]. SHE PRESENTED TO THE ER VIA EMS WITH REPORTS OF LOWER EXTREMITY SWELLING AND SHORTNESS OF BREATH. SHE ALSO REPORTS GENERALIZED ACHING. SYMPTOMS STARTED ABOUT TWO WEEKS AGO AND HAD PROGRESSIVELY GOTTEN WORSE. SHE REPORTED INCREASING HER LASIX TO 60MG PO BID, HOWEVER, SYMPTOMS PERSISTED AND NOW HER LEGS ARE WEEPING FLUID. HER PMH INCLUDES: ANXIETY, CHF, COPD, DYSLIPIDEMIA, GERD, HTN, NM, SVT, APPENDECTOMY, CHOLECYSTECTOMY, TONSILLECTOMY. SHE DOES REPORT RECENT INDIRECT EXPOSURE TO THE CORONAVIRUS THROUGH FAMILY MEMBERS. EXAMINATION REVEALED SCATTERED WHEEZING THROUGHOUT. SHE WAS ALSO NOTED TO HAVE 2+ PITTING EDEMA WITH WEEPING TO BILATERAL LOWER EXTREMITIES. ON ARRIVAL TO THE ER, VITALS WERE 98.6-62-16-100%RA-157/64. LABS WERE OBTAINED. ABNORMAL LAB VALUES INCLUDE THE FOLLOWING: HGB 10.7, HCT 34.9, CARBON DIOXIDE 34.5, GLUCOSE 120, CALCIUM 7.8, ALK PHOS 130, BNP 642, ALBUMIN 2.6. URINALYSIS REVEALED: WBC 0-2, RBC 3-5, BACTERIA NEGATIVE, LEUKOCYTES NEGATIVE. SHE WAS SWABBED FOR COVID- 19. A CHEST XRAY WAS OBTAINED AND REVEALED: The trachea is midline. The cardiac silhouette is stable. Lungs demonstrate persistent opacity in the right upper lobe slightly improved to prior. Continued follow-up is recommended. The bony thorax is unremarkable. EKG WAS OBTAINED AND REVEALED: ATRIAL FLUTTER WITH HR 62. A CHEST CT WAS OBTAINED AND REVEALED: 1. Linear parenchymal scarring versus subsegmental atelectasis of the bilateral lungs as above. No evidence of acute airspace disease. 2. Mild cardiomegaly, mild CAD, findings suggestive for PAH and additional chronic findings as above. SHE WAS GIVEN LASIX 80MG IV X 1 AND MORPHINE 2MG IV X 1 IN THE ER. SHE REPORTED ONLY SLIGHT IMPROVEMENT IN SYMPTOMS. SHE WAS ADMITTED FOR FURTHER EVALUATION AND TREATMENT OF CHF EXACERBATION, SOB, HYPOCALCEMIA, AND POSSIBLE COVID. SHE WAS STARTED ON LAXIX 40MG IV BID, LOVENOX 40MG SC DAILY, AMBIEN 5MG PO HS PRN, OTBS ACHS, HUMULIN R SLIDING SCALE, MORPHINE 2MG IV Q4H PRN. WE PLANNED TO FOLLOW UP WITH AM LABS AND CONTINUE TO MONITOR. ON THE MORNING FOLLOWING ADMISSION, PATIENT IS ALERT AND ORIENTED, LYING IN BED ON MORNING ROUNDS. SHE CONTINUES WITH LOWER EXTREMITY SWELLING, BUT REPORTS IMP ROVEMENT IN SHORTNESS OF BREATH SINCE YESTERDAY. HER BLOOD PRESSURE WAS ELEVATED THROUGHOUT THE NIGHT AND SHE WAS GIVEN APRESOLINE 10MG IV X 1 DOSE. ON EXAMINATION, HEART IS REGULAR IN RATE AND RHYTHM. BILATERAL LUNGS ARE NOTED WITH DIMINISHED LUNG SOUNDS THROUGHOUT. ABDOMEN IS ROUND, SOFT, AND NON-TENDER WITH NORMAL BOWEL SOUNDS NOTED IN ALL QUADRANTS. BILATERAL LOWER EXTREMITIES ARE NOTED WITH 1+ PITTING EDEMA. HER VITALS THIS MORNING ARE: 98.7-89-68-100-119/81. LABS WERE OBTAINED. ABNORMAL LAB VALUES INCLUDE THE FOLLOWING: HGB 10.9, HCT 35.2, CARBON DIOXIDE 38.7, CALCIUM 7.8, ALK PHOS 140, CRP 10.0, ALBUMIN 2.6. COVID-19 PENDING. CHEST XRAY REVEALED: The trachea is midline. The cardiac silhouette is mildly enlarged but stable. The lungs are clear without focal infiltrate or effusion. Linear atelectasis is seen in both midlung arias without change from yesterday's study. The bony thorax is unremarkable. WE OBTAINED AN ECHO. IT REVEALED AN EJECTION FRACTION OF 60%. PATIENT IS REQUESTING FOR DISCHARGE HOME AND REPORTS THAT SHE FEELS LIKE SHE CAN MANAGE AT HOME MUCH BETTER NOW. WE PLANNED FOR DISCHARGE. INSTRUCTIONS FOR MEDICATIONS AND FOLLOW-UP WERE DISCUSSED WITH PATIENT. WE DISCUSSED THE IMPORTANCE OF QUARANTINE UNTIL HER COVID-19 RESULTS WERE REPORTED TO HER. SHE VERBALIZED UNDERSTANDING OF ALL ORDERS. WE GAVE PATIENT A NEW PRESCRIPTION FOR LASIX 40MG PO BID AND INSTRUCTED HER TO FOLLOW UP WITH HER PRIMARY CARE PHYSICIAN WITHIN ONE WEEK. PATIENT WAS DISCHARGED HOME WITH FAMILY IN IMPROVED, STABLE CONDITION. - Discharge Medications Discharge Medications: Home Medication List furosemide 40 mg PO BID #60 tab 01/10/20 [Rx] Prescriptions: furosemide Eyal Manzano - Discharge Plan Disposition: HOME, SELF-CARE Condition: Stable Prescriptions: furosemide 40 mg PO BID #60 tab - Follow up/Referrals Follow up/Referrals: JALIL WHITTAKER [Primary Care Provider] - 01/17/20 11:45 am - Instructions Instructions: Fall Prevention in the Home, Adult, [id number], Chronic Obstructive Pulmonary Disease, Heart Failure Action Plan, How to Take Your Blood Pressure, [id number], Hypertension, [id number], Heart Failure Exacerbation, Edema, [id number], Steps to Quit Smoking Additional Instructions: DIET TOLERATED. ACTIVITY TOLERATED. Forms: Excuse From Work or School, Excuse From Work, Precautions for COVID19, Patient Portal, Social Distancing
== END 2020-01-10 13:05 | disposition home or self-care (01) ==
LOC: ICU 13:48 → ER 13:48 → ICU 18:00
PROVIDERS: ADMIT Internal Medicine; ATTEND Internal Medicine
DX: B27.00 Gammaherpesviral mononucleosis without complication; N39.0 Urinary tract infection, site not specified; R94.31 Abnormal electrocardiogram [ECG] [EKG]; Z79.899 Other long term (current) drug therapy; R06.02 Shortness of breath; J20.8 Acute bronchitis due to other specified organisms; E78.2 Mixed hyperlipidemia; Z20.818 Contact with and (suspected) exposure to other bacterial communicable diseases; R07.89 Other chest pain; R26.89 Other abnormalities of gait and mobility; J44.1 Chronic obstructive pulmonary disease with (acute) exacerbation; R60.0 Localized edema; Z79.01 Long term (current) use of anticoagulants; K21.9 Gastro-esophageal reflux disease without esophagitis
CPT/HCPCS: 36415; 51702; 71010; 71045; 71260; 80053; 81001; 82550; 82553; 83880; 84484; 85025; 86140; 93005; 93306; 96365; 96372; 96374; 96375; 97162; 97166; 99284; A4216; A4222; G0378; J0360; J1940; J2270